=== PATIENT | female | born 1990 | race Hispanic/Latino ===

== ENCOUNTER 2019-02-19 17:36 | Emergency (ER) | payer OTHER ==
[2019-02-19] MEDS ORDERED: NA CHLORIDE 0.9% 1,000 ML ONE (17:59)
[2019-02-19 18:12] LABS: Absolute Monocytes 0.6 K/uL (0.1-1.3); Absolute Neutrophil 6.8 K/uL (1.8-8.0); Basophils % 0.4 % (0-1.3); Eosinophils % 1.6 % (0-4.4); Hematocrit 40.4 % (36.0-45.0); Lymphocytes % 21.2 % (15.3-44.8); MPV 10.3 fL (7.6-11.3); Monocytes % 6.1 % (3.3-12.3); RBC Red Blood Cell Count 4.74 M/uL (3.86-4.86)
[2019-02-19 18:31] LABS: BUN Blood Urea Nitrogen 11 mg/dL (7-18); Bicarbonate 29 mmol/L (21-32); Glucose Level 84 mg/dL (74-106); HCG, Quantitative 20 mIU/mL (1-3); Potassium 3.6 mmol/L (3.5-5.1); Sodium Level 141 mmol/L (136-145)
[2019-02-19 18:45] LABS: Urine Blood 2+ (NEG); Urine Glucose NEGATIVE (NEG); Urine Protein NEGATIVE (NEG); Urine Specific Gravity 1.015 (1.005-1.030)
--- NOTE | 2019-02-19 19:59 | EDPHYS ---
Physician Documentation [facility] Name: Arelis Mendoza Age: 28 yrs Sex: Female : 1990 Arrival Date: 02/19/2019 Time: 17:40 Bed 24 Private MD: ED Physician Manfred Lee HPI: 02/19 17:52 This 28 yrs old Female presents to ER via Ambulatory with complaints of olivia Vaginal Bleeding, 5 wks . 17:52 The patient presents with vaginal bleeding that is light. Onset: The symptoms/episode olivia began/occurred this morning, today. Modifying factors: The symptoms are alleviated by nothing, the symptoms are aggravated by nothing. Associated signs and symptoms: The patient has no apparent associated signs or symptoms. Severity of symptoms: At their worst the symptoms were mild, in the emergency department the symptoms are actually worse, mildly. The patient is sexually active. The patient has not experienced similar symptoms in the past. 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 - Social history:: Smoking status: Patient/guardian denies using tobacco. - Family history:: not pertinent. - Ebola Screening: : No symptoms or risks identified at this time. ROS: 17:52 Constitutional: Negative for fever, chills, and weight loss, Eyes: Negative for injury, olivia pain, redness, and discharge, ENT: Negative for injury, pain, and discharge, Neck: Negative for injury, pain, and swelling, Cardiovascular: Negative for chest pain, palpitations, and edema, Respiratory: Negative for shortness of breath, cough, wheezing, and pleuritic chest pain, Back: Negative for injury and pain, : Negative for injury, bleeding, discharge, and swelling, MS/Extremity: Negative for injury and deformity, Skin: Negative for injury, rash, and discoloration, Neuro: Negative for headache, weakness, numbness, tingling, and seizure, Psych: Negative for depression, anxiety, suicide ideation, homicidal ideation, and hallucinations, Allergy/Immunology: Negative for hives, rash, and allergies, Endocrine: Negative for neck swelling, polydipsia, polyuria, polyphagia, and marked weight changes, Hematologic/Lymphatic: Negative for swollen nodes, abnormal bleeding, and unusual bruising. 17:52 Abdomen/GI: 17:52 : Positive for vaginal bleeding. Exam: 17:52 Constitutional: This is a well developed, well nourished patient who is awake, alert, olivia and in no acute distress. Head/Face: Normocephalic, atraumatic. Eyes: Pupils equal round and reactive to light, extra-ocular motions intact. Lids and lashes normal. Conjunctiva and sclera are non-icteric and not injected. Cornea within normal limits. Periorbital areas with no swelling, redness, or edema. ENT: Nares patent. No nasal discharge, no septal abnormalities noted. Tympanic membranes are normal and external auditory canals are clear. Oropharynx with no redness, swelling, or masses, exudates, or evidence of obstruction, uvula midline. Mucous membranes moist. Neck: Trachea midline, no thyromegaly or masses palpated, and no cervical lymphadenopathy. Supple, full range of motion without nuchal rigidity, or vertebral point tenderness. No Meningismus. Chest/axilla: Normal chest wall appearance and motion. Nontender with no deformity. No lesions are appreciated. Cardiovascular: Regular rate and rhythm with a normal S1 and S2. No gallops, murmurs, or rubs. Normal PMI, no JVD. No pulse deficits. Respiratory: Lungs have equal breath sounds bilaterally, clear to auscultation and percussion. No rales, rhonchi or wheezes noted. No increased work of breathing, no retractions or nasal flaring. Abdomen/GI: Soft, non-tender, with normal bowel sounds. No distension or tympany. No guarding or rebound. No evidence of tenderness throughout. Back: No spinal tenderness. No costovertebral tenderness. Full range of motion. Skin: Warm, dry with normal turgor. Normal color with no rashes, no lesions, and no evidence of cellulitis. MS/ Extremity: Pulses equal, no cyanosis. Neurovascular intact. Full, normal range of motion. Neuro: Awake and alert, GCS 15, oriented to person, place, time, and situation. Cranial nerves II-XII grossly intact. Motor strength 5/5 in all extremities. Sensory grossly intact. Cerebellar exam normal. Normal gait. Psych: Awake, alert, with orientation to person, place and time. Behavior, mood, and affect are within normal limits. Vital Signs: 17:49 BP 133 / 95; Pulse 101; Resp 18; Temp 98; Pulse Ox 100% ; Weight 90.72 kg; Height 5 ft. sv 5 in. (165.10 cm); Pain 3/10; 19:30 BP 107 / 65; Pulse 93; Resp 16; Pulse Ox 100% on R/A; lp1 17:49 Body Mass Index 33.28 (90.72 kg, 165.10 cm) sv MDM: 17:45 Patient medically screened. [facility] 17:54 Data reviewed: vital signs, nurses notes, lab test result(s), radiologic studies, [facility] ultrasound. 19:57 Data interpreted: Pulse oximetry: on room air is 100 %. Interpretation: normal. pm1 Counseling: I had a detailed discussion with the patient and/or guardian regarding: the historical points, exam findings, and any diagnostic results supporting the discharge/admit diagnosis, lab results, the need for outpatient follow up, an OB/Gyne specialist, to return to the emergency department if symptoms worsen or persist or if there are any questions or concerns that arise at home. 02/19 17:46 Order name: Quantitative Hcg [facility] 02/19 17:46 Order name: Abo/rh Typing; Complete Time: 19:57 [facility] 02/19 17:46 Order name: Basic Metabolic Panel; Complete Time: 19:57 [facility] 02/19 17:46 Order name: CBC with Diff; Complete Time: 19:57 [facility] 02/19 17:47 Order name: HCG, Quantitative; Complete Time: 19:57 EDMS 02/19 18:09 Order name: Urine Dipstick--Ancillary (enter results); Complete Time: 19:57 bd 02/19 17:46 Order name: Urine Test (obtain specimen); Complete Time: 17:59 [facility] 02/19 17:46 Order name: IV Saline Lock; Complete Time: 17:59 [facility] 02/19 17:46 Order name: Labs collected and sent; Complete Time: 17:59 [facility] 02/19 17:46 Order name: NPO; Complete Time: 17:46 [facility] 02/19 18:09 Order name: Urine --Ancillary (enter results); Complete Time: 19:57 02/19 17:46 Order name: Urine Dipstick-Ancillary (obtain specimen); Complete Time: 18:00 [facility] Administered Medications: 17:55 Not Given (Duplicate Order): NS 0.9% 1000 ml IV at 1 bolus Per protocol; 1000 mL bolus [facility] 17:56 Drug: NS 0.9% 1000 ml Route: IV; Rate: 1 bolus; Site: left antecubital; 19:12 Follow up: IV Status: Completed infusion; IV Intake: 1000ml lp1 Disposition: 02/20 06:46 Co-signature as Attending Physician, Manfred Lee MD I agree with the assessment and [facility] plan of care. Disposition: 02/19/19 19:58 Discharged to Home. Impression: Threatened . - Condition is Stable. - Discharge Instructions: Dysmenorrhea, Miscarriage, Dysmenorrhea, [id number], Miscarriage, [id number], Pelvic Rest. - Prescriptions for Vitamin 27- 0.8 mg Oral Tablet - take 1 tablet by ORAL route once daily; 30 tablet. - Medication Reconciliation Form, Thank You Letter, Antibiotic Education, Prescription Opioid Use, Work release form form. - Follow up: Private Physician; When: 2 - 3 days; Reason: Recheck today's complaints, Continuance of care, Re-evaluation by your physician. - Problem is new. - Symptoms have improved. Signatures: Dispatcher [employer] EDAR Kim Owen, RN Manfred Lr MD MD cha Pena, Laura, RN RN lp1 Frankie Johnson RN RN hj Marinas, Patrick, AUTOMOBILE PARKER AUTOMOBILE PARKER pm1 Peterson Morgan RN RN mg2 Corrections: (The following items were deleted from the chart) 02/19 17:59 17:47 Transvaginal Ob+US.RAD.BRZ ordered. [facility] EDAR 20:20 19:58 02/19/2019 19:58 Discharged to Home. Impression: Threatened . Condition mg2 is Stable. Discharge Instructions: Dysmenorrhea, Miscarriage, Dysmenorrhea, [id number]-[id number], Miscarriage, [id number]. Prescriptions for Vitamin 27-0.8 mg Oral Tablet - take 1 tablet by ORAL route once daily; 30 tablet. and Forms are Medication Reconciliation Form, Thank You Letter, Antibiotic Education, Prescription Opioid Use. Follow up: Private Physician; When: 2 - 3 days; Reason: Recheck today's complaints, Continuance of care, Re-evaluation by your physician. Problem is new. Symptoms have improved. pm1
--- NOTE | 2019-02-19 19:59 | ER ---
Nurse's Notes [facility] Name: Arelis Mendoza Age: 28 yrs Sex: Female : 1990 Arrival Date: 02/19/2019 Time: 17:40 Bed 24 Private MD: Diagnosis: Threatened Presentation: 02/19 17:47 Presenting complaint: Patient states: abd cramping, dizziness, vaginal spotting started sv this morning around 0400 and bleeding has increased. Pt is 5 weeks . Transition of care: patient was not received from another setting of care. Onset of symptoms was February 19, 2019 at 04:00. Care prior to arrival: None. 17:47 Method Of Arrival: Ambulatory sv 17:47 Acuity: TONO 3 sv 20:00 Initial Sepsis Screen: Does the patient meet any 2 criteria? No. Patient's initial mg2 sepsis screen is negative. Does the patient have a suspected source of infection? No. Patient's initial sepsis screen is negative. 20:14 Risk Assessment: Do you want to hurt yourself or someone else? Patient reports no mg2 desire to harm self or others. 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 - Social history:: Smoking status: Patient/guardian denies using tobacco. - Family history:: not pertinent. - Ebola Screening: : No symptoms or risks identified at this time. Screenin:48 Abuse screen: Denies threats or abuse. Denies injuries from another. Nutritional lp1 screening: No deficits noted. Tuberculosis screening: No symptoms or risk factors identified. Fall Risk None identified. Assessment: 19:16 General: Appears in no apparent distress. Behavior is appropriate for age. lp1 19:20 Pain: Denies pain. Neuro: Level of Consciousness is awake, alert, obeys commands. lp1 Cardiovascular: Patient's skin is warm and dry. Respiratory: No deficits noted. GI: No deficits noted. : Reports vaginal bleeding that is bright red, since this morning. EENT: No deficits noted. Derm: Skin is pink, warm \T\ dry. Musculoskeletal: No deficits noted. 20:13 Reassessment: Patient and/or family updated on plan of care and expected duration. Pain mg2 level reassessed. Patient denies pain at this time. Vital Signs: 17:49 BP 133 / 95; Pulse 101; Resp 18; Temp 98; Pulse Ox 100% ; Weight 90.72 kg; Height 5 ft. sv 5 in. (165.10 cm); Pain 3/10; 19:30 BP 107 / 65; Pulse 93; Resp 16; Pulse Ox 100% on R/A; lp1 17:49 Body Mass Index 33.28 (90.72 kg, 165.10 cm) sv ED Course: 17:40 Patient arrived in ED. mr 17:42 Frankie Johnson, ANTONIO is Primary Nurse. hj 17:45 Manfred Lee MD is Attending Physician. olivia 17:48 Triage completed. sv 17:49 Arm band placed on. sv 17:55 Initial lab(s) drawn, by co, sent to lab. Inserted saline lock: 22 gauge in left tm3 antecubital area, using aseptic technique. 18:21 Tonio Wong NP is PHCP. pm1 19:48 Patient has correct armband on for positive identification. Pulse ox on. NIBP on. lp1 19:49 No provider procedures requiring assistance completed. lp1 20:13 IV discontinued, intact, bleeding controlled, No redness/swelling at site. Pressure mg2 dressing applied. Administered Medications: 17:55 Not Given (Duplicate Order): NS 0.9% 1000 ml IV at 1 bolus Per protocol; 1000 mL bolus olivia 17:56 Drug: NS 0.9% 1000 ml Route: IV; Rate: 1 bolus; Site: left antecubital; hj 19:12 Follow up: IV Status: Completed infusion; IV Intake: 1000ml lp1 Intake: 19:12 IV: 1000ml; Total: 1000ml. lp1 Outcome: 19:58 Discharge ordered by . pm1 20:14 Discharged to home ambulatory. mg2 20:14 Condition: good 20:14 Discharge instructions given to patient, Instructed on discharge instructions, follow up and referral plans. medication usage, Demonstrated understanding of instructions, follow-up care, medications, Prescriptions given X 1. 20:20 Patient left the ED. mg2 Signatures: Derrick Rodriguez tm3 BraydenKim RN RN sv Anderson, Corey, MD MD cha Rivera, Mary mr RyanKaity, ANTONIO RN lp1 Frankie Johnson RN RN Tonio Hennessy, EARNESTINE VP STRATEGIC PLANNING pm1 Peterson Morgan RN RN mg2 Corrections: (The following items were deleted from the chart) 19:47 19:16 General: Appears in no apparent distress. Behavior is appropriate for age, lp1 lp1
== END 2019-02-19 20:20 | disposition home or self-care (01) ==
LOC: ER 17:36
DX: O20.0 Threatened abortion (principal); Z3A.01 Less than 8 weeks gestation of pregnancy
CPT/HCPCS: 36415; 80048; 81003; 81025; 84702; 85025; 86900; 86901; 96360; 99284; J7030

== ENCOUNTER 2024-08-27 22:40 | Emergency (ER) | payer BC, OTHER ==
--- OUTSIDE RECORDS SUMMARY | 2024-08-27 22:44 | XMS REPORT | Continuity of Care Document ---
Author Name Unknown Address [address] [facility] [address] [place] [address] [facility] thconnect Address [address] 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 Role Phone Pcp, Patient Does Not Have A Primary Care Physic haresh ADEOLA RESTREPO Attending Clinician Unavailable ADEOLA RESTREPO Attending Clinician Unavailable Margarita Santiago MA Attending Clinician UnavailPrabhakar Kendrick MD Attending Clinician [phone] PRABHAKAR RAMIREZ Attending Clinician Unavailable Doctor Unassigned, [place] Attending Clinician U KARIS Narvaez Attending Clinician Unavailable Karis Anderson PA-C Attending Clinician [phone] Darcie Acosta MD Attending Clinician [phone] Adeola Restrepo MD Attending Clinician [phone] Ray Hughes MD Attending Clinician [phone] Lars Gillis MD Attending Clinician + 2, [facility] Attending Clinician Unavailable Ultrasound, Ang[facility] Attending Clinician UnavailEnedina Lopez MD Attending Clinician [phone] ENEDINA MORENO Attending Clinician Unavailable ENEDINA MORENO Attending Clinician Unavailable Howard Haddad MD Attending Clinician + HOWARD HADDAD Attending Clinician Unav Del Stevenson CRNA Attending Clinician [phone] Yelena Gustafson MD Attending Clinician [phone] Only, [facility] Test Attending Clinician Unavailable Harjit Lanier MD Attending Clinician [phone] HARJIT LANIER Attending Clinician Unavailabl e Ultrasound, [facility] Attending Clinician UnavailAlicia Flowers MD Attending Clinician + ALICIA MARIE Attending Clinician Lisa márquez Nurse, [facility] Attending Clinician Un available 1, [facility] Room Attending Clinician Unavailarben Young MD, [place] Renee Attending Clinician [phone] Mei Landeros Attending Clinician Unavailable ADEOLA RESTREPO Admitting Clinician Unavailable Adeola Restrepo MD Admitting Clinician [phone] PRABHAKAR RAMIREZ Admitting Clinician Unavailable Prabhakar Ramirez MD Admitting Clinician [phone] Mei Landeros Admitting Clinician Unavailable Payers Payer Name Policy Type Policy Number Effective Date Expirati on Date Source [facility] [id number] 2021 00:00:00 [facility] [id number] 2019 00:00:00 2021 00:00:00 [facility] [id number] 2021 00:00:00 Problems Condition Name Condition Details Condition Category Status Onset Date Resolution Date Last Treatment Date Treating Clinician Comments Source (spontaneo us vaginal delivery) (spontaneo us vaginal delivery) Disease Active 12-15 00:00: 00 General acute hospital Single live Single live Disease Active 12-15 00:00: 00 General acute hospital Preeclamps ia Preeclamps ia Disease Active 12-15 00:00: 00 General acute hospital Acute blood loss anemia Acute blood loss anemia Disease Active 12-15 00:00: 00 General acute hospital premature rupture of membranes (PPROM) delivered, current hospitaliz ation premature rupture of membranes (PPROM) delivered, current hospitaliz ation Disease Active 2-08 00:00: 00 General acute hospital Abnormal maternal glucose tolerance, antepartum Abnormal maternal glucose tolerance, antepartum Disease Active 1-05 00:00: 00 General acute hospital High risk , antepartum High risk , antepartum Disease Active 9 00:00: 00 General acute hospital History of severe pre-eclamp radu History of severe pre-eclamp radu Disease Active 9- 00:00: 00 General acute hospital Nausea and vomiting during prior to 22 weeks gestation Nausea and vomiting during prior to 22 weeks gestation Disease Active 07-14 00:00: 00 General acute hospital Encounter for screening for maternal depression Encounter for screening for maternal depression Disease Active 1-11 00:00: 00 General acute hospital 34 weeks gestation of 34 weeks gestation of Disease Active 2020-11 1-15 00:00: 00 General acute hospital Papanicola ou smear of cervix with atypical squamous cells cannot exclude high grade squamous intraepith elial lesion (ASC-H) Papanicola ou smear of cervix with atypical squamous cells cannot exclude high grade squamous intraepith elial lesion (ASC-H) Disease Active 6-10 00:00: 00 General acute hospital Morbid obesity with body mass index of 40.0-49.9 Morbid obesity with body mass index of 40.0-49.9 Disease Active 7-10 00:00: 00 General acute hospital Allergies, Adverse Reactions, Alerts Allergy Name Allergy Type Status Severity Reaction(s) Onset Date Inactive Date Treating Clinician Comments Source No Known Allergie s DA Active U 1-17 00:00: 00 [facility] NO KNOWN ALLERGIE S Drug Class Active General acute hospital Social History Social Habit Start Date Stop Date Quantity Comments Source ASSERTION 2022-05-01 00:00:00 [facility] History SDOH Alcohol Frequency [facility] History SDOH Alcohol Std Drinks [facility] Alcohol Binge [facility] Exposure to SARS-CoV-2 (event) 2023-01-20 00:00:00 2023-01-30 08:05:00 Not sure [facility] History of Social function 2023-01-30 00:00:00 2023-01-30 00:00:00 [facility] Alcohol intake 2023-01-30 00:00:00 2023-01-30 00:00:00 Ex-drinker (finding) [facility] Tobacco use and exposure 2022-07-14 00:00:00 2022-07-14 00:00:00 Smokeless tobacco non-user [facility] Alcohol Comment 2020-05-15 00:00:00 2020-05-15 00:00:00 ocassionally [facility] Sex Assigned At 1990 00:00:00 1990 00:00:00 [facility] Smoking Status Start Date Stop Date Source Never smoked tobacco General acute hospital Medications Ordered Medication Name Filled Medication Name Start Date Stop Date Current Medication? Ordering Clinician Indication Dosage Frequency Signature (SIG) Comments Components Source miSOPROStoL 200 mcg tablet 5- 00:00: 00 Yes Take 1 tablet by mouth the evening before your IUD insertion, and 1 tablet by mouth the morning of your IUD insertion. General acute hospital medroxyPROG ESTERone (DEPO-PROVE RA) syringe 150 mg 01-30 15:00: 00 01-30 14:25 :00 No [id number] 150mg [facility] svi094-avql fum-folic () 27 mg iron- 1 mg folic tablet 2- 00:00: 00 Yes [id number] 1{tbl} Take 1 tablet by mouth in the morning. General acute hospital ferrous sulfate 325 mg (65 mg iron) tablet - 00:00: 00 Yes [id number] 325mg Take 1 tablet by mouth in the morning and 1 tablet in the evening. [facility] acute hospital squ025-uchv fum-folic () 27 mg iron- 1 mg folic tablet 2- 00:00: 00 Yes [id number] 1{tbl} Take 1 tablet by mouth in the morning. [facility] acute hospital docusate 100 mg capsule 12-16 00:00: 00 01-30 00:00 :00 No [id number] 200mg Take 2 capsules by mouth once daily as needed for Constipati on. General acute hospital ibuprofen 600 mg tablet 12-16 00:00: 00 01-30 00:00 :00 No [id number] 600mg Take 1 tablet by mouth every 6 (six) hours as needed (Pain). Take with food or milk. [facility] acute hospital ascorbic acid (vitamin C) (VITAMIN C) tablet 500 mg 12-15 16:30: 00 Yes 500mg 500 mg, Oral, BID, First dose on Andressa 12/15/22 at 1030, Until Discontinu ed, Routine [facility] acute hospital ferrous sulfate tablet 325 mg 12-15 16:30: 00 Yes 325mg 325 mg, Oral, BID, First dose on Andressa 12/15/22 at 1030, Until Discontinu ed, Routine [facility] acute hospital ondansetron (ZOFRAN (PF)) injection 4 mg 12-15 09:30: 00 12-15 08:50 :00 No 4mg 4 mg, Slow IV Push, ONCE, On Andressa 12/15/22 at 0330, For 1 dose
Do ses of ondansetro n 16 mg and above need to be administer ed via IV piggyback. For Dose >=24mg ECG monitoring is advisable.
General acute hospital rho(D) immune globulin (RHOGAM) syringe 300 mcg 12-15 09:19: 59 Yes 300ug 300 mcg, Intramuscu lar, ONCE, For 1 dose, Conditiona l, Routine [facility] acute hospital human papillomav vac,9-monica(P F) (GARDASIL-9 ) syringe 0.5 mL 12-15 09:19: 55 Yes .5mL 0.5 mL, Intramuscu lar, ONCE-PRIOR TO DISCHARGE, 1 dose, Starting on Andressa 12/15/22 at 318, Until Discontinu ed, Routine, Give vaccine prior to discharge [facility] acute hospital ibuprofen (IBU) tablet 600 mg 12-15 09:19: 55 Yes 600mg 600 mg, Oral, Q6HPRN, Starting on Mon12/15/22 at 318, Until Discontinu ed, Routine, Pain (scale 4-6) [facility] acute hospital acetaminoph en (TYLENOL) tablet 650 mg 12-15 09:19: 55 Yes 650mg 650 mg, Oral, Q6HPRN, Starting on Mon12/15/22 at 318, Until Discontinu ed, Routine, Pain (scale 1-3) [facility] acute hospital diphenhydrA MINE (BENADRYL) tablet 25 mg 12-15 09:19: 55 Yes 25mg 25 mg, Oral, Q6HPRN, Starting on Mon12/15/22 at 318, Until Discontinu ed, Routine, Sleep, Itching General acute hospital ondansetron (ZOFRAN (PF)) injection 4 mg 12-15 09:19: 55 Yes 4mg 4 mg, Slow IV Push, Q8HPRN, Starting on Mon12/15/22 at 318, Until Discontinu ed, Routine, Nausea and Vomiting (N/V) General acute hospital simethicone (GAS RELIEF (SIMETHICON E)) chewable tablet 160 mg 12-15 09:19: 55 Yes 160mg 160 mg, Oral, PC+HSPRN, Starting on Mon12/15/22 at 318, Until Discontinu ed, Routine, Gas [facility] docusate (COLACE) capsule 200 mg 12-15 09:19: 55 Yes 200mg 200 mg, Oral, QDAILYPRN, Starting on Mon12/15/22 at 318, Until Discontinu ed, Routine, Constipati on General acute hospital magnesium hydroxide (MILK OF MAGNESIA) 400 mg/5 mL suspension 30 mL 12-15 09:19: 55 Yes 30mL 30 mL, Oral, QDAILYPRN, Starting on Mon12/15/22 at 0319, Until Discontinu ed, Routine, Constipati on General acute hospital benzocaine- menthol (DERMOPLAST ) 20-0.5 % topical spray 12-15 09:19: 55 Yes Topical, PRN, Starting on Mon12/15/22 at 0319, Until Discontinu ed, Routine, Perineum discomfort General acute hospital acetaminoph en (TYLENOL) tablet 1,000 mg 12-15 01:45: 00 12-15 01:01 :00 No 1000mg 1,000 mg, Oral, ONCE, 1 dose, On Mon12/14/22 at 1945, Routine General acute hospital ropivacaine 0.2 % (NAROPIN (PF)) epidural infusion 12-15 00:06: 00 12-15 06:42 :26 No Epidural, CONTINUOUS PRN, Starting on Mon12/14/22 at 1806, Until Mon12/15/22 at 0042, Routine, Intra-op General acute hospital lidocaine-e pinephrine (XYLOCAINE W/EPINEPHRI NE) 1.5 %-1:200,000 injection 12-15 00:06: 00 12-15 06:42 :26 No Intraderma l, ONCE INTRA PROCEDURE, Starting on Mon12/14/22 at 1806, Until Andressa 12/15/22 at 0042, Routine, Intra-op General acute hospital lactated ringers IV infusion 500 mL 12-15 00:00: 00 12-15 01:17 :00 No 500mL at 999 mL/hr, 500 mL, IV Infusion, ONCE, 1 dose, On Mon12/14/22 at 1800, Routine General acute hospital oxytocin (PITOCIN) 30 units in NS 500 mL IV infusion 12-14 23:32: 02 12-15 09:19 :57 No 2mU/min at 2-40 mL/hr, IV Infusion, TITRATE, Starting on Mon12/14/22 at 1732, Until Mon12/15/22 at 0319, LESLI General acute hospital sodium citrate-cit shavonne acid (BICITRA) 500-334 mg/5 mL solution 30 mL 12-14 23:07: 28 12-14 23:50 :00 No 30mL 30 mL, Oral, PRE-PROCED URE ONCE, 1 dose, Starting on Mon12/14/22 at 1707, Until Mon12/14/22 at 1750, Routine, Surgery/Pr ocedure General acute hospital betamethaso ne acet,sod phos (CELESTONE SOLUSPAN) 6 mg/mL injection 12 mg 12-14 17:45: 00 12-15 09:19 :57 No 12mg 12 mg, Intramuscu lar, Q24H, 2 doses, First dose on Mon12/14/22 at 1145, Last dose on Mon12/15/22 at 1145, Routine General acute hospital D5W-LR IV infusion 1,000 mL 12-14 17:36: 01 12-15 09:19 :57 No 1000mL at 1-125 mL/hr, IV Infusion, TITRATE, Starting on Mon12/14/22 at 1136, Until Mon12/15/22 at 0319, Routine General acute hospital ferrous sulfate (IRON, FERROUS SULFATE,) 325 mg (65 mg iron) tablet 11-10 00:00: 00 12-16 00:00 :00 No [id number] 325mg Take 1 tablet by mouth in the morning and 1 tablet in the evening. General acute hospital pyridoxine, VITAMIN B-6, (VITAMIN B-6) 25 mg tablet 07-14 00:00: 00 12-16 00:00 :00 No [id number] 25mg Take 1 tablet by mouth every 6 (six) hours as needed for Pain (scale 1-3) or Pain (scale 4-6). General acute hospital doxylamine (UNISOM, DOXYLAMINE, ) 25 mg tablet 07-14 00:00: 00 12-16 00:00 :00 No [id number] 25mg Take 1 tablet by mouth at bedtime as needed for Nausea and Vomiting (N/V). [facility] acute hospital aspirin 81 mg EC tablet 9-08 00:00: 00 12-16 00:00 :00 No [id number] 81mg Take 1 tablet by mouth in the morning. General acute hospital vitamin w/FA tablet 2020-11 1-17 00:00: 00 12-16 00:00 :00 No [id number] 1{tbl} Take 1 tablet by mouth daily. [facility] acute hospital Immunizations Ordered Immunization Name Filled Immunization Name Date Status Comments Source TDAP 2022-11-10 00:00:00 Completed [facility] TDAP 2022-11-10 00:00:00 Completed [facility] TDAP 2022-11-10 00:00:00 Completed [facility] TDAP 2022-11-10 00:00:00 Completed [facility] TDAP 2022-11-10 00:00:00 Completed [facility] TDAP 2022-11-10 00:00:00 Completed [facility] TDAP 2022-11-10 00:00:00 Completed [facility] TDAP 2022-11-10 00:00:00 Completed [facility] TDAP 2022-11-10 00:00:00 Completed [facility] TDAP 2022-11-10 00:00:00 Completed [facility] TDAP 2022-11-10 00:00:00 Completed [facility] TDAP 2022-11-10 00:00:00 Completed [facility] TDAP 2022-11-10 00:00:00 Completed [facility] TDAP 2022-11-10 00:00:00 Completed [facility] TDAP 2022-11-10 00:00:00 Completed [facility] TDAP 2022-11-10 00:00:00 Completed [facility] TDAP 2022-11-10 00:00:00 Completed [facility] TDAP 2021-07-29 00:00:00 Completed [facility] TDAP 2021-07-29 00:00:00 Completed [facility] TDAP 2021-07-29 00:00:00 Completed [facility] TDAP 2021-07-29 00:00:00 Completed [facility] TDAP 2021-07-29 00:00:00 Completed [facility] TDAP 2021-07-29 00:00:00 Completed [facility] TDAP 2021-07-29 00:00:00 Completed [facility] TDAP 2021-07-29 00:00:00 Completed [facility] TDAP 2021-07-29 00:00:00 Completed [facility] TDAP 2021-07-29 00:00:00 Completed [facility] TDAP 2021-07-29 00:00:00 Completed [facility] TDAP 2021-07-29 00:00:00 Completed [facility] TDAP 2021-07-29 00:00:00 Completed [facility] TDAP 2021-07-29 00:00:00 Completed [facility] TDAP 2021-07-29 00:00:00 Completed [facility] TDAP 2021-07-29 00:00:00 Completed [facility] TDAP 2021-07-29 00:00:00 Completed [facility] TDAP 2021-07-29 00:00:00 Completed [facility] TDAP 2021-07-29 00:00:00 Completed [facility] TDAP 2021-07-29 00:00:00 Completed [facility] TDAP 2021-07-29 00:00:00 Completed [facility] TDAP 2021-07-29 00:00:00 Completed [facility] TDAP 2021-07-29 00:00:00 Completed [facility] TDAP 2021-07-29 00:00:00 Completed [facility] TDAP 2021-07-29 00:00:00 Completed [facility] TDAP 2021-07-29 00:00:00 Completed [facility] TDAP 2021-07-29 00:00:00 Completed [facility] TDAP 2021-07-29 00:00:00 Completed [facility] TDAP Unknown Completed [facility] Vital Signs Vital Name Observation Time Observation Value Comments S ource Systolic blood pressure 2023-01-30 13:42:00 127 mm[Hg] [facility] Diastolic blood pressure 2023-01-30 13:42:00 87 mm[Hg] [facility] Heart rate 2023-01-30 13:42:00 77 /min Unive [facility] Body temperature 2023-01-30 13:42:00 36.61 Danica [facility] Body height 2023-01-30 13:42:00 165.1 cm [facility] Body weight 2023-01-30 13:42:00 111.676 kg [facility] BMI 2023-01-30 13:42:00 40.97 kg/m2 [facility] Systolic blood pressure 2022-12-20 15:48:00 114 mm[Hg] [facility] Diastolic blood pressure 2022-12-20 15:48:00 77 mm[Hg] [facility] Heart rate 2022-12-20 15:48:00 96 /min Unive [facility] Body temperature 2022-12-20 15:48:00 37.11 Danica [facility] Respiratory rate 2022-12-20 15:48:00 18 /min [facility] Body height 2022-12-20 15:48:00 165.1 cm [facility] Body weight 2022-12-20 15:48:00 112.492 kg [facility] BMI 2022-12-20 15:48:00 41.27 kg/m2 [facility] Systolic blood pressure 2022-12-16 14:30:00 117 mm[Hg] [facility] Diastolic blood pressure 2022-12-16 14:30:00 70 mm[Hg] [facility] Heart rate 2022-12-16 14:30:00 82 /min [facility] Body temperature 2022-12-16 14:30:00 36.89 Danica [facility] Respiratory rate 2022-12-16 14:30:00 18 /min [facility] Oxygen saturation in Arterial blood by Pulse oximetry 2022-12-16 06:15:00 97 /min [facility] Body height 2022-12-14 21:30:00 162.6 cm Univ [facility] Body weight 2022-12-14 21:30:00 115.667 kg [facility] BMI 2022-12-14 21:30:00 43.77 kg/m2 [facility] Systolic blood pressure 2022-12-08 17:23:00 138 mm[Hg] [facility] Diastolic blood pressure 2022-12-08 17:23:00 85 mm[Hg] [facility] Heart rate 2022-12-08 17:23:00 87 /min Un[facility] Body temperature 2022-12-08 17:23:00 36.94 Danica [facility] Respiratory rate 2022-12-08 17:23:00 18 /min [facility] Body height 2022-12-08 17:23:00 162.6 cm Univ [facility] Body weight 2022-12-08 17:23:00 116.121 kg [facility] BMI 2022-12-08 17:23:00 43.94 kg/m2 [facility] Systolic blood pressure 2022-11-24 16:48:00 124 mm[Hg] [facility] Diastolic blood pressure 2022-11-24 16:48:00 78 mm[Hg] [facility] Heart rate 2022-11-24 16:48:00 91 /min Un[facility] Body temperature 2022-11-24 16:48:00 36.89 Danica [facility] Body height 2022-11-24 16:48:00 165.1 cm Univ [facility] Body weight 2022-11-24 16:48:00 115.849 kg [facility] BMI 2022-11-24 16:48:00 42.50 kg/m2 [facility] Systolic blood pressure 2022-11-10 15:40:00 137 mm[Hg] [facility] Diastolic blood pressure 2022-11-10 15:40:00 85 mm[Hg] [facility] Heart rate 2022-11-10 15:40:00 99 /min [facility] Body temperature 2022-11-10 15:40:00 36.83 Danica [facility] Body height 2022-11-10 15:40:00 165.1 cm Univ [facility] Body weight 2022-11-10 15:40:00 115.123 kg Univ [facility] BMI 2022-11-10 15:40:00 42.23 kg/m2 Univ [facility] Systolic blood pressure 2022-10-20 16:55:00 129 mm[Hg] [facility] Diastolic blood pressure 2022-10-20 16:55:00 84 mm[Hg] [facility] Heart rate 2022-10-20 16:55:00 97 /min Un[facility] Body temperature 2022-10-20 16:55:00 37.17 Danica [facility] Respiratory rate 2022-10-20 16:55:00 18 /min [facility] Body height 2022-10-20 16:55:00 165.1 cm Univ [facility] Body weight 2022-10-20 16:55:00 115.214 kg Univ [facility] BMI 2022-10-20 16:55:00 42.27 kg/m2 Univ [facility] Systolic blood pressure 2022-09-12 20:12:00 128 mm[Hg] [place] [facility] Diastolic blood pressure 2022-09-12 20:12:00 81 mm[Hg] [facility] Heart rate 2022-09-12 19:13:00 95 /min [facility] Body temperature 2022-09-12 19:13:00 36.83 Danica [facility] Respiratory rate 2022-09-12 19:13:00 18 /min [facility] Body height 2022-09-12 19:13:00 165.1 cm Univ [facility] Body weight 2022-09-12 19:13:00 116.121 kg Univ [facility] BMI 2022-09-12 19:13:00 42.60 kg/m2 Univ [facility] Systolic blood pressure 2022-08-15 19:47:00 135 mm[Hg] [place] [facility] Diastolic blood pressure 2022-08-15 19:47:00 84 mm[Hg] [place] [facility] Heart rate 2022-08-15 19:47:00 79 /min [facility] Body temperature 2022-08-15 19:47:00 36.94 Danica [facility] Respiratory rate 2022-08-15 19:47:00 18 /min [facility] Body height 2022-08-15 19:47:00 165.1 cm [facility] Body weight 2022-08-15 19:47:00 116.121 kg [facility] BMI 2022-08-15 19:47:00 42.60 kg/m2 [facility] Procedures Procedure Date / Time Performed Performing Clinician Source [facility] PATIENT FINANCIAL POLICY 2023-01-30 13:07:28 Doctor Unassigned, [place] [facility] POCT TEST 2023-01-30 00:00:00 Prabhakar Ramirez [facility] POCT URINALYSIS W/O SPECIFIC GRAVITY 2022-12-20 00:00:00 Karis Anderson [facility] CBC WITH DIFF 2022-12-15 13:43:00 Carlos Limon [facility] VENOUS CORD GAS 2022-12-15 05:39:00 Chuyita Gar [facility] CENTRAL NEURAXIAL BLOCK 2022-12-15 00:14:00 Artemio Hughes [facility] SGOT (ASPARTATE AMINO TRANSFER) 2022-12-14 21:41:00 Jenusaitis [facility] CREATININE 2022-12-14 21:41:00 Jenusamarlo [facility] ALANINE AMINO TRANSFERASE(SGPT 2022-12-14 21:41:00 Vipin [facility] LACTATE DEHYDROGENASE 2022-12-14 21:41:00 Jensusie [facility] URIC ACID 2022-12-14 21:41:00 Jensusie [facility] CBC WITH DIFF 2022-12-14 21:41:00 JenMisbah richards [facility] URINALYSIS 2022-12-14 21:41:00 Jenusaitis, [facility] PROTEIN CREAT RATIO URINE RANDOM 2022-12-14 21:41:00 JenusaitisMisbah [facility] HB ABO GROUPING 2022-12-14 21:40:00 JenusaitisMisbah U [facility] RHO (D) IMMUNE GLOBULIN 2022-12-14 21:40:00 Rigo Limon [facility] CBC WITH DIFF 2022-12-14 18:19:00 Ashley [facility] HEPATITIS B SURFACE ANTIGEN 2022-12-14 18:19:00 Ashley [facility] ADC OR GABE ONLY - RPR 2022-12-14 18:19:00 Ashley [facility] HIV 1/2 AG-AB WITH REFLEX 2022-12-14 18:19:00 [facility] 2022-12-14 18:10[facility] - [facility] 2022-12-14 17:27:00 Ashley [facility] ASSIGNMENT OF BENEFITS 2022-12-14 16:15:58 Docto r Unassigned, [place] [facility] POCT URINALYSIS W/O SPECIFIC GRAVITY 2022-12-08 00:00:00 Karis Anderson [facility] POCT URINALYSIS W/O SPECIFIC GRAVITY 2022-11-24 00:00:00 Prabhakar Ramirez [facility] 1 HR GLUCOSE TOLERANCE TEST 2022-11-23 15:53:00 Karis Anderson [facility] GLUCOSE FASTING 2022-11-23 14:58:00 Karis Anderson [facility] TDAP VACCINE, >11 YRS, IM 2022-11-10 15:41:56 Prabhakar Ramirez [facility] POCT URINALYSIS W/O SPECIFIC GRAVITY 2022-11-10 00:00:00 [facility]INALYSIS W/O SPECIFIC GRAVITY 2022-10-20 00:00:00 Karis Anderson [facility] POCT URINALYSIS W/O SPECIFIC GRAVITY 2022-09-12 00:00:00 Ashley Prabhakar Garcia [facility] POCT URINALYSIS W/O SPECIFIC GRAVITY 2022-08-15 00:00:00 Karis Anderson [facility] [id number] 2019-11-22 00:00:00 [facility] [id number] 2019-11-22 00:00:00 [facility] [facility] [id number] 2019-11-22 00:00:00 [facility] Encounters Start Date/Time End Date/Time Encounter Type Admission Type Attending [facility] Care Department Encounter ID Source 2022-12-14 13:05:51 Outpatient ADEOLA LAST SHANNON [facility] [id number] General acute hospital 2023-09-01 00:00:00 2023-09-01 00:00:00 Case Management Margarita Santiago [place] 1.2.840.114 350.1.13.10 4.2.7.2.686 [id number] [id number] General acute hospital 2023-03-16 00:00:00 2023-03-16 00:00:00 Telephone AshleyPrabhakar Jose [facility] 1.2.840.114 350.1.13.10 4.2.7.2.686 [id number] 134 [id number] General acute hospital 2023-03-16 00:00:00 2023-03-16 00:00:00 Telephone Prabhakar Ramirez Jose [facility] 1.2.840.114 350.1.13.10 4.2.7.2.686 [id number] 134 [id number] General acute hospital 2023-03-16 00:00:00 2023-03-16 00:00:00 Refill Prabhakar Ramirez Jose [facility] 1.2.840.114 350.1.13.10 4.2.7.2.686 [id number] 134 [id number] General acute hospital 2023-01-30 08:15:00 2023-01-30 09:25:43 Outpatient R RAMIREZ PRABHAKAR [facility] [id number] General acute hospital 2023-01-30 08:15:00 2023-01-30 09:25:43 Office Visit [facility]akar Ramirez [facility] 1..840.114 350.1.13.10 4.2.7.2.686 [id number] 134 [id number] General acute hospital 2023-01-30 00:00:00 2023-01-30 00:00:00 Orders Only Doctor Unassigned, [place] [facility] 1..840.114 350.1.13.10 4.2.7.2.686 [id number] General acute hospital 2023-01-05 08:00:00 2023-01-05 08:00:00 Outpatient R RAMIREZ PRABHAKAR [facility] [id number] General acute hospital 2022-12-21 09:30:00 2022-12-21 09:30:00 Outpatient R PRABHAKAR RAMIREZ [facility] [id number] General acute hospital 2022-12-20 09:45:00 2022-12-20 10:21:53 Outpatient R KARIS ANDERSON [facility] [id number] General acute hospital 2022-12-20 09:45:00 2022-12-20 10:21:53 [facility] 1..840.114 350.1.13.10 4.2.7.2.686 [id number] 134 [id number] General acute hospital 2022-12-14 10:30:00 2022-12-16 13:00:00 Inpatient P [facility] [id number] General acute hospital 2022-12-14 10:30:00 2022-12-16 13:00:00 Hospital Encounter Addavid, Darcie Ramirez, Prabhakar Restrepo, Adeola Hoff [facility] 1.2.840.114 350.1.13.10 4.2.7.2.686 [id number] 134 [id number] General acute hospital 2022-12-14 17:53:00 2022-12-15 00:42:00 Anesthesia Event Saul RayLars Gallagher [facility] 1.2.840.114 350.1.13.10 4.2.7.2.686 [id number] 132 [id number] General acute hospital 2022-12-14 17:52:11 2022-12-14 17:52:11 Anesthesia Event Ray Hughes [facility] 1.2.840.114 350.1.13.10 4.2.7.2.686 [id number] 132 [id number] General acute hospital 2022-12-14 00:00:00 2022-12-14 00:00:00 Orders Only Doctor Unassigned, [place] [facility] 1.2840.114 350.1.13.10 4.2.7.2.686 [id number] General acute hospital 2022-12-14 00:00:00 2022-12-14 00:00:00 Telephone Prabhakar Ramirez [facility] 1.2840.114 350.1.13.10 4.2.7.2.686 [id number] 134 [id number] General acute hospital 2022-12-08 11:15:00 2022-12-08 11:39:58 Outpatient R KARIS ANDERSON [facility] [id number] General acute hospital 2022-12-08 11:15:00 2022-12-08 11:39:58 Routine Visit Karis Anderson [facility] 1.284.114 350.1.13.10 4.2.7.2.686 [id number] 134 [id number] General acute hospital 2022-11-24 10:45:00 2022-11-24 10:57:16 Outpatient R PRABHAKAR RAMIREZ [facility] [id number] General acute hospital 2022-11-24 10:45:00 2022-11-24 10:57:16 Routine Visit Prabhakar Ramirez [facility] 1.2840.114 350.1.13.10 4.2.7.2.686 [id number] 134 [id number] General acute hospital 2022-11-23 09:30:00 2022-11-23 09:45:00 Shoemaker Custom Visit 2, [facility] 1.2840.114 350.1.13.10 4.2.7.2.686 [id number] 353 [id number] General acute hospital 2022-11-23 09:30:00 2022-11-23 09:30:00 Outpatient R ASHLEY [facility] [id number] General acute hospital 2022-11-10 10:45:00 2022-11-10 11:15:00 Shoemaker Custom Visit Ultrasound, [facility] Prabhakar Ramirez Enedina Moreno [facility] ENVIRONMENTAL DESIGNER [facility] 1.2840.114 350.1.13.10 4.2.7.2.686 [id number] General acute hospital 2022-11-10 10:45:00 2022-11-10 10:59:59 Outpatient P ENEDINA MORENO SANGEETA [facility] [id number] General acute hospital 2022-11-10 09:45:00 2022-11-10 10:05:40 Routine Visit Prabhakar Ramirez [facility] 1.2840.114 350.1.13.10 4.2.7.2.686 [id number] 134 [id number] General acute hospital 2022-11-10 08:30:00 2022-11-10 08:45:00 Shoemaker Custom Visit 2, Adc Lab Prabhakar Ramirez [facility] 1.2.840.114 350.1.13.10 4.2.7.2.686 [id number] General acute hospital 2022-11-10 00:00:00 2022-11-10 00:00:00 Case Management [facility] 1.2.840.114 350.1.13.10 4.2.7.2.686 [id number] 134 [id number] General acute hospital 2022-10-20 10:45:00 2022-10-20 11:16:22 Outpatient R MONICA KARIS [facility] [id number] General acute hospital 2022-10-20 10:45:00 2022-10-20 11:16:22 Routine Visit Karis Anderson [facility] 1.2.840.114 350.1.13.10 4.2.7.2.686 [id number] 134 [id number] General acute hospital 2022-10-10 10:30:00 2022-10-10 10:45:00 Routine Visit Karis Anderson [facility] 1.2.840.114 350.1.13.10 4.2.7.2.686 [id number] 134 [id number] General acute hospital 2022-10-10 10:30:00 2022-10-10 10:30:00 Outpatient [facility] [id number] General acute hospital 2022-09-27 13:00:00 2022-09-27 13:00:00 Outpatient R PRABHAKAR RAMIREZ [facility] [id number] General acute hospital 2022-09-20 14:30:00 2022-09-20 14:30:00 Outpatient R PRABHAKAR RAMIREZ [facility] [id number] General acute hospital 2022-09-16 08:00:00 2022-09-16 09:00:00 Shoemaker Custom Visit Ultrasound, Jamaal-Edgar Howard Haddad Mami [facility] ENVIRONMENTAL DESIGNER [facility] MATERNAL & CHILD HEALTH [facility] 1.2840.114 350.1.13.10 4.2.7.2.686 [id number] General acute hospital 2022-09-16 08:00:00 2022-09-16 08:00:00 Outpatient P HOWARD HADDAD [facility] [id number] General acute hospital 2022-09-12 13:15:00 2022-09-12 13:42:24 Outpatient R PRABHAKAR RAMIREZ [facility] [id number] General acute hospital 2022-09-12 13:15:00 2022-09-12 13:42:24 Routine Visit Prabhakar Ramirez [facility] 1.2.840.114 350.1.13.10 4.2.7.2.686 [id number] 134 [id number] General acute hospital 2022-08-15 16:00:00 2022-08-15 16:15:00 Shoemaker Custom Visit 2, Adc Lab Monica [facility] 1.2.840.114 350.1.13.10 4.2.7.2.686 [id number] 353 [id number] General acute hospital 2022-08-15 14:45:00 2022-08-15 15:33:08 Outpatient R MONICA [facility] [id number] General acute hospital 2022-08-15 14:45:00 2022-08-15 15:33:08 Routine Visit Monica [facility] 1.2.840.114 350.1.13.10 4.2.7.2.686 [id number] 134 [id number] General acute hospital 2022-08-11 00:00:00 2022-08-11 00:00:00 Telephone Prabhakar Ramirez [facility] 1.2.840.114 350.1.13.10 4.2.7.2.686 [id number] 134 [id number] General acute hospital 2022-07-26 00:00:00 2022-07-26 00:00:00 Telephone Prabhakar Ramirez [facility] 1.2.840.114 350.1.13.10 4.2.7.2.686 [id number] 134 [id number] General acute hospital 2022-07-26 00:00:00 2022-07-26 00:00:00 Telephone Prabhakra Ramirez [facility] 1.2.840.114 350.1.13.10 4.2.7.2.686 [id number] 134 [id number] General acute hospital 2022-07-18 09:15:00 2022-07-18 10:11:50 Shoemaker Custom Visit 2, Adc Lab Prabhakar Ramirez [facility] 1.2.840.114 350.1.13.10 4.2.7.2.686 [id number] 353 [id number] General acute hospital 2022-07-18 09:15:00 2022-07-18 09:15:00 Outpatient R PRABHAKAR RAMIREZ [facility] [id number] General acute hospital 2022-07-14 10:00:00 2022-07-14 11:04:01 Outpatient R PRABHAKAR RAMIREZ [facility] [id number] General acute hospital 2022-07-14 10:00:00 2022-07-14 11:04:01 Initial Visit Prabhakar Ramirez [facility]ILD[facility] 1.2.840.114 350.1.13.10 4.2.7.2.686 [id number] 134 [id number] General acute hospital 2022-07-14 00:00:00 2022-07-14 00:00:00 Orders Only Doctor Unassigned, [place] [facility] 1.20.114 350.1.13.10 4.2.7.2.686 [id number] [id number] General acute hospital 2022 00:00:00 2022 00:00:00 Telephone Prabhakar Ramirez [facility] 1.84.114 350.1.13.10 4.2.7.2.686 [id number] 134 [id number] General acute hospital 2021-12-22 10:30:00 2021-12-22 10:30:00 [id number] acute [facility] 2021-12-21 13:30:00 2021-12-21 13:30:00 [facility] [id number] [facility] acute hospital 2021-11-25 08:15:00 2021-11-25 08:15:00 [facility] [id number] General acute hospital 2021-11-16 14:15:00 2021-11-16 15:10:50 [facility] [id number] General acute hospital 2021-11-16 14:15:00 2021-11-16 15:10:50 Routine Visit Prabhakar Ramirez [facility] 1.840.114 350.1.13.10 4.2.7.2.686 [id number] 134 [id number] General acute hospital 2021-11-16 00:00:00 2021-11-16 00:00:00 Orders Only Doctor Unassigned, [place] [facility] 1.20.114 350.1.13.10 4.2.7.2.686 [id number] [id number] General acute hospital 2021-10-25 11:00:00 2021-10-25 11:00:00 Outpatient R PRABHAKAR RAMIREZ [facility] [id number] General acute hospital 2021-09-20 04:17:00 2021-09-22 15:45:00 Inpatient P PRABHAKAR RAMIREZ [facility] [id number] General acute hospital 2021-09-20 04:17:00 2021-09-22 15:45:00 Hospital Encounter Prabhakar Ramirez [facility] 1.2.840.114 350.1.13.10 4.2.7.2.686 [id number] General acute hospital 2021-09-21 20:04:15 2021-09-21 20:04:15 Anesthesia Event Del Cornell [facility] 1.2.840.114 350.1.13.10 4.2.7.2.686 [id number] General acute hospital 2021-09-20 10:35:00 2021-09-20 15:59:00 Anesthesia Event Del Cornell Yelena Gustafson [facility] 1.2.114 350.1.13.10 4.2.7.2.686 [id number] General acute hospital 2021-09-20 10:30:00 2021-09-20 10:30:00 Outpatient R PRABHAKAR RAMIREZ [facility] [id number] General acute hospital 2021-09-20 00:00:00 2021-09-20 00:00:00 Orders Only Doctor Unassigned, [place] [facility] 1.20.114 350.1.13.10 4.2.7.2.686 [id number] General acute hospital 2021-09-17 09:03:35 2021-09-17 09:18:35 Laboratory Only Only, Adc Test Harjit Lanier [facility] 1.2840.114 350.1.13.10 4.2.7.2.686 [id number] 353 [id number] General acute hospital 2021-09-17 08:15:00 2021-09-17 08:15:00 Outpatient HARJIT SOL [facility] [id number] General acute hospital 2021-09-17 00:00:00 2021-09-17 00:00:00 Orders Only Doctor Unassigned, [place] [facility] 1.2840.114 350.1.13.10 4.2.7.2.686 [id number] [id number] General acute hospital 2021-09-15 08:35:00 2021-09-15 09:50:00 Outpatient P ASHLEY PRABHAKAR [facility] [id number] General acute hospital 2021-09-15 08:35:00 2021-09-15 09:50:00 Hospital Encounter Prabhakar Ramirez [facility] 1.2840.114 350.1.13.10 4.2.7.2.686 [id number] General acute hospital 2021-09-14 10:11:30 2021-09-14 11:17:22 Routine Visit Prabhakar Ramirez [facility] 1.2.840.114 350.1.13.10 4.2.7.2.686 [id number] 134 [id number] General acute hospital 2021-09-14 09:41:50 2021-09-14 10:09:57 Shoemaker Custom Visit Ultrasound, [facility] Alicia L[facility]pez [facility] 1.2.840.114 350.1.13.10 4.2.7.2.686 [id number] 134 [id number] General acute hospital 2021-09-14 09:15:00 2021-09-14 10:09:57 Outpatient P ALICIA LÓPEZ [facility] [id number] General acute hospital 2021-09-14 00:00:00 2021-09-14 00:00:00 Case Management Prabhakar Ramirez [facility] 1.2.840.114 350.1.13.10 4.2.7.2.686 [id number] 134 [id number] General acute hospital 2021-09-13 13:47:00 2021-09-13 23:00:00 Outpatient P PRABHAKAR RAMIREZ [facility] [id number] General acute hospital 2021-09-13 13:47:00 2021-09-13 23:00:00 Hospital Encounter Prabhakar Ramirez [facility] 1.2.840.114 350.1.13.10 4.2.7.2.686 [id number] [id number] General acute hospital 2021-09-13 13:00:51 2021-09-13 13:38:06 Routine Visit Prabhakar Ramirez [facility] 1.2.840.114 350.1.13.10 4.2.7.2.686 [id number] 134 [id number] General acute hospital 2021-09-13 13:00:00 2021-09-13 13:38:06 Outpatient R PRABHAKAR RAMIREZ [facility] [id number] General acute hospital 2021-08-27 14:43:43 2021-08-27 16:18:18 Nurse Visit Nurse, [facility] Prabhakar Ramirez [facility] 1.2.840.114 350.1.13.10 4.2.7.2.686 [id number] 134 [id number] General acute hospital 2021-08-27 15:00:00 2021-08-27 15:00:00 Outpatient R [facility] [id number] General acute hospital 2021-08-25 11:21:52 2021-08-25 11:36:52 Routine Visit Prabhakar Ramirez [facility] 1.2.840.114 350.1.13.10 4.2.7.2.686 [id number] 134 [id number] General acute hospital 2021-08-25 11:15:00 2021-08-25 11:15:00 Outpatient R ASHLEY PRABHAKAR [facility] [id number] General acute hospital 2021-08-16 09:05:50 2021-08-16 09:20:50 Nurse Visit Nurse, [facility] Prabhakar Ramirez [facility] 1.2.840.114 350.1.13.10 4.2.7.2.686 [id number] 134 [id number] General acute hospital 2021-08-16 09:00:00 2021-08-16 09:00:00 Outpatient R [facility] [id number] General acute hospital 2021-08-11 11:31:25 2021-08-11 12:09:54 Routine Visit Prabhakar Ramirez Nancy [facility] 1.2.840.114 350.1.13.10 4.2.7.2.686 [id number] 134 [id number] General acute hospital 2021-08-11 11:30:00 2021-08-11 11:30:00 Outpatient R [facility] [id number] General acute hospital 2021-07-29 10:49:56 2021-07-29 11:04:56 Routine Visit Karis Anderson [facility] 1.2.840.114 350.1.13.10 4.2.7.2.686 [id number] 134 [id number] General acute hospital 2021-07-29 11:00:00 2021-07-29 11:00:00 Outpatient R [facility] [id number] General acute hospital 2021-07-28 00:00:00 2021-07-28 00:00:00 Telephone Prabhakar Ramirez [facility] 1.2.840.114 350.1.13.10 4.2.7.2.686 [id number] 134 [id number] General acute hospital 2021-07-27 09:15:00 2021-07-27 09:15:00 Outpatient R MONICA [facility] [id number] General acute hospital 2021-07-27 08:13:16 2021-07-27 08:28:16 Shoemaker Custom Visit 2, Adc Lab Gallosj Karis [facility] 1.2840.114 350.1.13.10 4.2.7.2.686 [id number] General acute hospital 2021-07-26 09:44:48 2021-07-26 10:26:01 Office Visit Prabhakar Ramirez [facility] 1.2840.114 350.1.13.10 4.2.7.2.686 [id number] 134 [id number] General acute hospital 2021-07-26 09:30:00 2021-07-26 09:30:00 Outpatient R PRABHAKAR RAMIREZ [facility] [id number] General acute hospital 2021-07-26 00:00:00 2021-07-26 00:00:00 Orders Only Doctor Unassigned, [place] [facility] 1.2840.114 350.1.13.10 4.2.7.2.686 [id number] [id number] General acute hospital 2021-07-06 08:15:00 2021-07-06 08:15:00 Outpatient R [facility] [id number] General acute hospital 2021-07-02 10:27:30 2021-07-02 11:12:30 Shoemaker Custom Visit Ultrasound, Adc Enedina Emery [facility] 1.2.840.114 350.1.13.10 4.2.7.2.686 [id number] 134 [id number] General acute hospital 2021-07-02 10:27:30 2021-07-02 11:12:30 Shoemaker Custom Visit Ultrasound, [facility] 1.2.840.114 350.1.13.10 4.2.7.2.686 [id number] 134 [id number] General acute hospital 2021-07-02 10:30:00 2021-07-02 10:30:00 Outpatient P [facility] [id number] General acute hospital 2021-07-02 09:23:48 2021-07-02 09:38:48 Shoemaker Custom Visit 2, Adc Lab Prabhakar Ramirez [facility] Building 1.2.840.114 350.1.13.10 4.2.7.2.686 [id number] 353 [id number] General acute hospital 2021-07-02 09:23:48 2021-07-02 09:38:48 Shoemaker Custom Visit 2, [facility] 1.2.840.114 350.1.13.10 4.2.7.2.686 [id number] 353 [id number] General acute hospital 2021-07-02 00:00:00 2021-07-02 00:00:00 Case Management Ashley Prabhakar [facility] 1.2.840.114 350.1.13.10 4.2.7.2.686 [id number] 134 [id number] General acute hospital 2021-07-02 00:00:00 2021-07-02 00:00:00 Case Management Ashley Prabhakar [facility] 1.2.840.114 350.1.13.10 4.2.7.2.686 [id number] 134 [id number] General acute hospital 2021-07-01 10:03:40 2021-07-01 10:55:59 Routine Visit Prabhakar Ramirez Nancy [facility] 1.2.840.114 350.1.13.10 4.2.7.2.686 [id number] 134 [id number] General acute hospital 2021-07-01 10:03:40 2021-07-01 10:55:59 Routine Visit Prabhakar Ramirez Nancy [facility] 1..840.114 350.1.13.10 4.2.7.2.686 [id number] 134 [id number] General acute hospital 2021-07-01 10:15:00 2021-07-01 10:15:00 Outpatient R KARIS ANDERSON [facility] [id number] General acute hospital 2021-06-25 10:00:00 2021-06-25 10:00:00 Outpatient P [facility] [id number] General acute hospital 2021-06-03 10:39:23 2021-06-03 12:30:38 Routine Visit Prabhakar Ramirez [facility] 1..840.114 350.1.13.10 4.2.7.2.686 [id number] 134 [id number] General acute hospital 2021-06-03 11:00:00 2021-06-03 11:00:00 Outpatient R PRABHAKAR RAMIREZ [facility] [id number] General acute hospital 2021-05-25 10:23:57 2021-05-25 11:32:47 Shoemaker Custom Visit 1, [facility] 1..840.114 350.1.13.10 4.2.7.2.686 [id number] General acute hospital 2021-05-25 10:30:00 2021-05-25 10:30:00 Outpatient P [facility] [id number] General acute hospital 2021-05-20 09:50:39 2021-05-20 10:50:39 Shoemaker Custom Visit Ultrasound, Adc Adeola Packer [facility] 1.2.840.114 350.1.13.10 4.2.7.2.686 [id number] 134 [id number] General acute hospital 2021-05-20 10:00:00 2021-05-20 10:00:00 Outpatient P [facility] [id number] General acute hospital 2021-05-20 00:00:00 2021-05-20 00:00:00 Orders Only Doctor Unassigned, [place] [facility] 1.2.840.114 350.1.13.10 4.2.7.2.686 [id number] General acute hospital 2021-05-07 10:53:03 2021-05-07 11:08:03 Shoemaker Custom Visit 2, Adc Prabhakar Katz [facility] 1.2.840.114 350.1.13.10 4.2.7.2.686 [id number] 353 [id number] General acute hospital 2021-05-07 09:15:00 2021-05-07 09:15:00 Outpatient R [facility] [id number] General acute hospital 2021-05-06 11:00:29 2021-05-06 11:39:03 Routine Visit Karis Anderson [facility] 1.2.840.114 350.1.13.10 4.2.7.2.686 [id number] 134 [id number] General acute hospital 2021-05-06 11:30:00 2021-05-06 11:30:00 Outpatient R MONICA KARIS [facility] [id number] General acute hospital 2021-04-21 00:00:00 2021-04-21 00:00:00 Case Management Monica Karis [facility] 1.2840.114 350.1.13.10 4.2.7.2.686 [id number] 134 [id number] General acute hospital 2021-04-16 00:00:00 2021-04-16 00:00:00 Orders Only Doctor Unassigned, [place] [facility] 1.2840.114 350.1.13.10 4.2.7.2.686 [id number] General acute hospital 2021-04-15 08:35:04 2021-04-15 09:43:04 Office Visit Ashley Prabhakar Jose [facility] 1.2840.114 350.1.13.10 4.2.7.2.686 [id number] General acute hospital 2021-04-15 09:00:00 2021-04-15 09:00:00 Outpatient R PRABHAKAR RAMIREZ [facility] [id number] General acute hospital 2021-04-15 00:00:00 2021-04-15 00:00:00 Telephone Ashley Prabhakarursula Garcia [facility] 1.2840.114 350.1.13.10 4.2.7.2.686 [id number] General acute hospital 2021-04-15 00:00:00 2021-04-15 00:00:00 Orders Only Doctor Unassigned, [place] [facility] 1.2840.114 350.1.13.10 4.2.7.2.686 [id number] General acute hospital 2021-04-09 09:17:54 2021-04-09 09:32:54 [employer]emaker Custom Visit 2, Adc Lab Prabhakar Ramirez Jose [facility] 1.2840.114 350.1.13.10 4.2.7.2.686 [id number] General acute hospital 2021-04-09 08:45:00 2021-04-09 08:45:00 Outpatient R PRABHAKAR RAMIREZ [facility] [id number] General acute hospital 2021-04-09 00:00:00 2021-04-09 00:00:00 Orders Only Doctor Unassigned, [place] [facility] 1.2.840.114 350.1.13.10 4.2.7.2.686 [id number] General acute hospital 2021-04-08 16:21:16 2021-04-08 16:36:16 Routine Visit Karis Anderson [facility] 1.2.840.114 350.1.13.10 4.2.7.2.686 [id number] General acute hospital 2021-04-08 16:30:00 2021-04-08 16:30:00 [facility] [id number] General acute hospital 2021-04-08 11:24:53 2021-04-08 11:39:53 [employer]emaker Custom Visit 2, Adc Lab Delvin Ramirezen [facility] 1.2.840.114 350.1.13.10 4.2.7.2.686 [id number] General acute hospital 2021-04-08 11:00:00 2021-04-08 11:00:00 Outpatient R PRABHAKAR RAMIREZ [facility] [id number] General acute hospital 2021-03-10 13:45:00 2021-03-10 15:10:55 Initial Visit Prabhakar Ramirez [facility] 1.2.840.114 350.1.13.10 4.2.7.2.686 [id number] General acute hospital 2021-03-10 14:00:00 2021-03-10 14:00:00 Outpatient R PRABHAKAR RAMIREZ [facility] [id number] General acute hospital 2021-03-10 00:00:00 2021-03-10 00:00:00 Orders Only Doctor Unassigned, [place] [facility] 1.2.840.114 350.1.13.10 4.2.7.2.686 [id number] General acute hospital 2021-02-25 14:30:00 2021-02-25 14:30:00 Outpatient R PRABHAKAR RAMIREZ [facility] [id number] General acute hospital 2020-06-24 14:00:00 2020-06-24 14:00:00 Outpatient R KARIS ANDERSON [facility] [id number] General acute hospital 2020-05-28 14:15:00 2020-05-28 14:15:00 Outpatient R PRABHAKAR RAMIREZ [facility] [id number] General acute hospital 2020-05-18 10:04:17 2020-05-18 10:19:17 [employer] Custom Visit 2, Adc Lab Prabhakar Ramirez [facility] [id number] General acute hospital 2020-05-18 09:30:00 2020-05-18 09:30:00 Outpatient R [facility] [id number] General acute hospital 2020-05-15 09:46:38 2020-05-15 10:45:31 Office Visit Prabhakar Ramirez [facility] [id number] General acute hospital 2020-05-15 10:00:00 2020-05-15 10:00:00 Outpatient R PRABHAKAR RAMIREZ [facility] [id number] General acute hospital 2019-11-22 00:14:00 2019-11-28 03:44:52 Inpatient Mei Romero [facility] [id number] [facility] 2019-11-22 05:45:00 2019-11-22 05:45:00 Outpatient Mei Landeros [facility] [id number] 88 [facility] Results Test Description Test Time Test Comments Results Result Co mments Source [facility] [id number] 13:51:00* Test Item Value Reference Range Interpretation Comme nts POCT PREG (test code = 1605) Negative On board controls acceptable with C Line (test code = 3574) Yes POCT PREG LOT # (test code = 3575) POCT PREG TEST DATE ( test code = 3576) [facility] URINALYSIS W/O SPECIFIC [id number] 16:18:00* Test Item Value Reference Range Interpretation Comme nts POCT PH U (test code = 3254) 7 mg/dl 5-8 POCT U LEUK EST (test code = 3263) Negative Negative - Negative POCT U NIT (test code = 3262) Negative Negative - Negati ve POCT U PROT (test code = 3259) Negative Negative - Negat jaci POCT U GLU (test code = 3256) Normal Negative - Negati ve POCT U KETONE (test code = 3258) Negative Negative - Neg ative POCT U BLD (test code = 3257) 250 Negative - Negati ve General acute hospital with [id number] 14:11:07* Test Item Value Reference Range Interpretation Comme nts WBC (test code = 6690-2) 14.15 See_Comment H [Automated message] The system which generated this result transmitted reference range: 4.30 - 11.10 10*3/?L. The reference range was not used to interpret this result as normal/abnormal. RBC (test code = 789-8) 3.70 See_Comment L [Automated message] The system which generated this result transmitted reference range: 3.93 - 5.25 10*6/?L. The reference range was not used to interpret this result as normal/abnormal. HGB (test code = 718-7) 8.6 g/dL 11.6-15.0 L HCT (test code = 4544-3) 28.5 % 35.7-45.2 L MCV (test code = 787-2) 77.0 fL 80.6-95.5 L MCH (test code = 785-6) 23.2 pg 25.9-32.8 L MCHC (test code = 786-4) 30.2 g/dL 31.6-35.1 L RDW-SD (test code = 15511-6) 58.2 fL 39.0-49.9 H RDW-CV (test code = 788-0) 21.3 % 12.0-15.5 H PLT (test code = 777-3) 290 See_Comment [Automated message] The system which generated this result transmitted reference range: 166 - 358 10*3/?L. The reference range was not used to interpret this result as normal/abnormal. MPV (test code = 19817-3) 12.2 fL 9.5-12.9 NRBC/100 WBC (test code = 9531720990) 0.0 See_Comment [Automated message] The system which generated this result transmitted reference range: 0.0 - 10.0 /100 WBCs. The reference range was not used to interpret this result as normal/abnormal. NRBC x10^3 (test code = 1864386143) See_Comment [Automated message] The system which generated this result transmitted reference range: 10*3/?L. The reference range was not used to interpret this result as normal/abnormal. GRAN MAT (NEUT) % (test code = 770-8) 83.9 % IMM GRAN % (test code = 3024285470) 0.40 % LYMPH % (test code = 736-9) 8.6 % MONO % (test code = 5905-5) 7.0 % EOS % (test code = 713-8) 0.0 % BASO % (test code = 706-2) 0.1 % GRAN MAT x10^3(ANC) (test code = 7180277256) 11.87 10*3/uL 1.88-7.09 H IMM GRAN x10^3 (test code = 0170911364) 0.06 10*3/uL 0.00-0.06 LYMPH x10^3 (test code = 731-0) 1.21 10*3/uL 1.32-3.29 L MONO x10^3 (test code = 742-7) 0.99 10*3/uL 0.33-0.92 H EOS x10^3 (test code = 711-2) 0.03-0.39 L BASO x10^3 (test code = 704-7) 0.01-0.07 Lab Interpretation (test code = 29668-4) [facility]normal [facility] IMMUNE [id number] 11:43:47* Test Item Value Reference Range Interpretation Comme nts RHIG CANDIDATE? (test code = 5055) No- see comment Patient is not a candidate for RhIg- Patient is Rh Positive.Performed at [facility] Laboratory Services - [facility] Blood [address] [place] [address]Gcwo Free: [phone] No. [id number] [facility] [id number] 05:47:22* Test Item Value Reference Range Interpretation Comme nts VENOUS BASE EXCESS, CORD (test code = 7935071511) -0.3 mEq/L VENOUS PH, CORD (test code = 7880248406) 7.40 7.25-7.45 VENOUS PC02, CORD (test code = 2184871714) 41 See_Comment [Automated messa ge] The system which generated this result transmitted reference range: 27 - 49 mmHg. The reference range was not used to interpret this result as normal/abnormal. VENOUS PO2, CORD (test code = 3745589782) 26 See_Comment [Automated me ssage] The system which generated this result transmitted reference range: 17 - 41 mmHg. The reference range was not used to interpret this result as normal/abnormal. VENOUS BICARBONATE, CORD (test code = 9755929263) 25 See_Comment QUES [Automated message] The system which generated this result transmitted reference range: 12 - 29 mEq/L. The reference range was not used to interpret this result as normal/abnormal. [facility] [id number] 05:47:17* Test Item Value Reference Range Interpretation Comme nts BASE EXCESS, CORD (test code = 4348788666) 0.4 mEq/L QUES AC PH, CORD (BEAKER) (test code = 8488797631) 7.34 7.18-7.38 PC02, CORD (test code = 1099703482) 51 See_Comment [Automated messa ge] The system which generated this result transmitted reference range: 32 - 66 mmHg. The reference range was not used to interpret this result as normal/abnormal. PO2, CORD (test code = 3133076579) 20 See_Comment [Automated [employer]] The system which generated this result transmitted reference range: 10 - 30 mmHg. The reference range was not used to interpret this result as normal/abnormal. BICARBONATE, CORD (test code = 0723420602) 27 See_Comment [Automated [employer]] The system which generated this result transmitted reference range: 17 - 27 mEq/L. The reference range was not used to interpret this result as normal/abnormal. [facility] Hospital[facility] [id number] 22:26:32* Test Item Value Reference Range Interpretation Comme [facility] URIC ACID (test code = 3470975138) 3.5 mg/dL 2.9-6.0 Lab Interpretation (test cod e = 74569-3) Normal [facility] [id number] 22:26:32* Test Item Value Reference Range Interpretation Comme [facility] CREATININE (test code = 5829834734) 0.30 mg/dL 0.50-1.04 L eGFR (test code = 7626505732) 257.8 mL/min/1.73m2 DEION (test code = DEION) Association of Glomerular Filtration Rate (GFR) and Staging of Kidney Disease* + --+ --+ ------+| GFR (mL/min/1.73 m2) ?| With Kidney Damage ?| ?Without Kidney Damage+ --------+ --------+ +| ?>90 ?| ?Stage one ?| ? Normal ?+ ---+ ---+ -------+| ?60-89 ?| ?Stage two ?| ? Decreased GFR ? + --+ --+ ------+| ?30-59 ?| ?Stage three ?| ? Stage three ? + --+ --+ ------+| ?15-29 ?| ?Stage four ? | ? Stage four ?+ ---+ ---+ -------+| ?<15 (or dialysis) ? ?| ?Stage five ? | ? Stage five ?+ ---+ ---+ -------+ *Each stage assumes the associated GFR level has been in effect for at least three months. ?Stages 1 to 5, with or without kidney disease, indicate chronic kidney disease. Notes: Determination of stages one and two (with eGFR >59mL/min/1.73 m2) requires estimation of kidney damage for at least three months as defined by structural or functional abnormalities of the kidney, manifested by either:Pathological abnormalities or Markers of kidney damage (including abnormalities in the composition of the blood or urine or abnormalities in imaging tests). Lab Interpretation (test code = 56889-9) Abnormal [facility] (Asparate Amino Transfer)2022-12-14 22:26:32* Test Item Value Reference Range Interpretation Comme nts AST(SGOT) (test code = 4735533801) 25 U/L 13-40 Lab Interpretation (test cod e = 16053-2) Normal [facility] HospitalAlanine Amino Transferase (SGPT)2022-12-14 22:26:32* Test Item Value Reference Range Interpretation Comme nts ALTv (test code = 1742-6) 24 U/L 5-35 Lab Interpretation (test cod e = 72446-6) Normal [facility] HospitalType and Screen - ONCE [id number] 22:26:11 * Test Item Value Reference Range Interpretation Comme nts ABO & RH (test code = 20) B POSITIVE Performed at [facility] Laboratory Services - [facility] Blood [address] Free: [phone] No. [id number] IAT (test code = 1185) Negative Performed at [facility] Laboratory Services - [facility] Blood [address] Free: [phone] No. [id number] [facility] HospitalLactate [id number] 22:25:06* Test Item Value Reference Range Interpretation Comme nts LDH (test code = 4258813278) 204 U/L 120-246 Lab Interpretation (test cod e = 53181-3) Normal General acute hospital with [id number] 22:21:33* Test Item Value Reference Range Interpretation Comme nts WBC (test code = 6690-2) 12.14 See_Comment H [Automated messa ge] The system which generated this result transmitted reference range: 4.30 - 11.10 10*3/?L. The reference range was not used to interpret this result as normal/abnormal. RBC (test code = 789-8) 4.33 See_Comment [Automated [employer]] The system which generated this result transmitted reference range: 3.93 - 5.25 10*6/?L. The reference range was not used to interpret this result as normal/abnormal. HGB (test code = 718-7) 10.1 g/dL 11.6-15.0 L HCT (test code = 4544-3) 33.1 % 35.7-45.2 L MCV (test code = 787-2) 76.4 fL 80.6-95.5 L MCH (test code = 785-6) 23.3 pg 25.9-32.8 L MCHC (test code = 786-4) 30.5 g/dL 31.6-35.1 L RDW-SD (test code = 93069-5) 57.7 fL 39.0-49.9 H RDW-CV (test code = 788-0) 21.3 % 12.0-15.5 H PLT (test code = 777-3) 265 See_Comment [Automated [employer]] The system which generated this result transmitted reference range: 166 - 358 10*3/?L. The reference range was not used to interpret this result as normal/abnormal. MPV (test code = 44273-8) 11.1 fL 9.5-12.9 IPF % (test code = 6499220847) 8.9 % 1.3-7.7 H Platelet count measured by fluorescence method. NRBC/100 WBC (test code = 8264938447) 0.0 See_Comment [Automated [employer] ssage] The system which generated this result transmitted reference range: 0.0 - 10.0 /100 WBCs. The reference range was not used to interpret this result as normal/abnormal. NRBC x10^3 (test code = 0716801324) See_Comment [Automated [employer]] The system which generated this result transmitted reference range: 10*3/?L. The reference range was not used to interpret this result as normal/abnormal. GRAN MAT (NEUT) % (test code = 770-8) 88.7 % IMM GRAN % (test code = 7648588075) 0.50 % LYMPH % (test code = 736-9) 8.5 % MONO % (test code = 5905-5) 2.0 % EOS % (test code = 713-8) 0.1 % BASO % (test code = 706-2) 0.2 % GRAN MAT x10^3(ANC) (test code = 4620155543) 10.78 10*3/uL 1.88-7.09 H IMM GRAN x10^3 (test code = 5705709569) 0.06 10*3/uL 0.00-0.06 LYMPH x10^3 (test code = 731-0) 1.03 10*3/uL 1.32-3.29 L MONO x10^3 (test code = 742-7) 0.24 10*3/uL 0.33-0.92 L EOS x10^3 (test code = 711-2) 0.03-0.39 L BASO x10^3 (test code = 704-7) 0.01-0.07 Lab Interpretation (test code = 97559-4) Abnormal [facility] - ONCE [id number] 19:29:42 * Test Item Value Reference Range Interpretation Comme nts ABO & RH (test code = 20) B Positive Performed at [facility] Laboratory Services [facility] Blood [address] Free: [phone] No. [id number] IAT (test code = 1185) Negative Performed at [facility] Laboratory [facility] Blood [place] [address]Toll Free: [phone] No. [id number] [facility] HospitalPO[facility] URINALYSIS W/O SPECIFIC [id number] 17:29:00* Test Item Value Reference Range Interpretation Comme nts POCT PH U (test code = 3254) n/a 5-8 POCT U LEUK EST (test code = 3263) n/a Negative - N egative POCT U NIT (test code = 3262) n/a Negative - Negati ve POCT U PROT (test code = 3259) neg Negative - Negat jaci POCT U GLU (test code = 3256) neg Negative - Negati ve POCT U KETONE (test code = 3258) n/a Negative - Neg ative POCT U BLD (test code = 3257) n/a Negative - Negati ve [facility] URINALYSIS W/O SPECIFIC [id number] 16:46:00* Test Item Value Reference Range Interpretation Comme nts POCT PH U (test code = 3254) n/a 5-8 POCT U LEUK EST (test code = 3263) n/a Negative - Negative POCT U NIT (test code = 3262) n/a Negative - Negati ve POCT U PROT (test code = 3259) Negative Negative - Negat jaci POCT U GLU (test code = 3256) Normal Negative - Negati ve POCT U KETONE (test code = 3258) n/a Negative - Neg ative POCT U BLD (test code = 3257) n/a Negative - Negati ve [facility] URINALYSIS W/O SPECIFIC [id number] 15:39:00* Test Item Value Reference Range Interpretation Comme nts POCT PH U (test code = 3254) N/A 5-8 POCT U LEUK EST (test code = 3263) N/A Negative - Negative POCT U NIT (test code = 3262) N/A Negative - Negati ve POCT U PROT (test code = 3259) NEGATIVE Negative - Negat jaci POCT U GLU (test code = 3256) NORMAL Negative - Negati ve POCT U KETONE (test code = 3258) N/A Negative - Neg ative POCT U BLD (test code = 3257) N/A Negative - Negati ve [facility] URINALYSIS W/O SPECIFIC [id number] 17:04:00* Test Item Value Reference Range Interpretation Comme nts POCT PH U (test code = 3254) n/a 5-8 POCT U LEUK EST (test code = 3263) n/a Negative - N egative POCT U NIT (test code = 3262) n/a Negative - Negati ve POCT U PROT (test code = 3259) neg Negative - Negat jaci POCT U GLU (test code = 3256) neg Negative - Negati ve POCT U KETONE (test code = 3258) n/a Negative - Neg ative POCT U BLD (test code = 3257) n/a Negative - Negati ve [facility] W/O SPECIFIC [id number] 19:22:00* Test Item Value Reference Range Interpretation Comme nts POCT PH U (test code = 3254) n/a 5-8 POCT U LEUK EST (test code = 3263) n/a Negative - Negative POCT U NIT (test code = 3262) n/a Negative - Negati ve POCT U PROT (test code = 3259) negative Negative - Negat jaci POCT U GLU (test code = 3256) negative Negative - Negati ve POCT U KETONE (test code = 3258) n/a Negative - Neg ative POCT U BLD (test code = 3257) n/a Negative - Negati ve [facility] W/O SPECIFIC [id number] 20:08:00* Test Item Value Reference Range Interpretation Comme nts POCT PH U (test code = 3254) n/a 5-8 POCT U LEUK EST (test code = 3263) n/a Negative - N egative POCT U NIT (test code = 3262) n/a Negative - Negati ve POCT U PROT (test code = 3259) neg Negative - Negat jaci POCT U GLU (test code = 3256) neg Negative - Negati ve POCT U KETONE (test code = 3258) n/a Negative - Neg ative POCT U BLD (test code = 3257) n/a Negative - Negati ve [facility] HospitalPROTHROMBIN [id number] 05:29:00* Test Item Value Reference Range Interpretation Comme nts PROTHROMBIN TIME PATIENT (te st code = PTP) 11.2 secs 10.4-12.4 N THROMBOPLASTIN TIME [id number] 05:29:00* Test Item Value Reference Range Interpretation Comme nts THROMBOPLASTIN TIME PARTIAL (test code = PTT) 26.9 secs 22-38 N HGB [id number] 05:17:00* Test Item Value Reference Range Interpretation Comme nts HEMOGLOBIN (test code = HGB) 9.6 g/dL 10.7-13.9 L HEMATOCRIT (test code = HCT) 31.5 % 32.1-42.1 L AG HEPATITIS B [id number] 04:01:00* Test Item Value Reference Range Interpretation Comme nts AG HEPATITIS B SURFACE (test code = HBSAG) NONREACTIVE NONREACTIVE AB HEPATITIS C [id number] 04:01:00* Test Item Value Reference Range Interpretation Comme nts AB HEPATITIS C (test code = HCVAB) NONREACTIVE NONREACTIVE SIGNAL TO CUTOFF (test code = CUTOFF) 0.03 <0.80 N AB [id number] 04:01:00* Test Item Value Reference Range Interpretation Comme nts AB TREPONEMA (test code = TREPAB) NONREACTIVE NONREACTIVE AB HIV 1 04:01:00* Test Item Value Reference Range Interpretation Comme nts AB HIV 1 2 (test code = ZZP92LB) Nonreactive NonReactive It is recognized that currently available assays for thedetection of antibodies to HIV-1 and/or HIV-2 may notdetect all infected individuals. A negative test result doesnot exclude the possibility of exposure to or infection withHIV. HIV antibodies may be undetectable in some stages ofthe infection and in some clinical conditions. AB HIV 1 04:00:00* Test Item Value Reference Range Interpretation Comme nts AB HIV 1 2 (test code = ORN51OI) Nonreactive NonReactive It is recognized that currently available assays for thedetection of antibodies to HIV-1 and/or HIV-2 may notdetect all infected individuals. A negative test result doesnot exclude the possibility of exposure to or infection withHIV. HIV antibodies may be undetectable in some stages ofthe infection and in some clinical conditions. AG HEPATITIS B [id number] 01:48:00* Test Item Value Reference Range Interpretation Comme nts AG HEPATITIS B SURFACE (test code = HBSAG) NONREACTIVE NONREACTIVE AB HEPATITIS C [id number] 01:48:00* Test Item Value Reference Range Interpretation Comme nts AB HEPATITIS C (test code = HCVAB) NONREACTIVE NONREACTIVE SIGNAL TO CUTOFF (test code = CUTOFF) 0.03 <0.80 N AB [id number] 01:48:00* Test Item Value Reference Range Interpretation Comme nts AB TREPONEMA (test code = TREPAB) NONREACTIVE NONREACTIVE AB HIV 1 01:48:00* Test Item Value Reference Range Interpretation Comme nts AB HIV 1 2 (test code = YIN81KT) NONREACTIVE COMPREHENSIVE METABOLIC [id number] 00:50:00* Test Item Value Reference Range Interpretation Comme nts SODIUM (test code = NA) 135 mEq/L 135-145 N POTASSIUM (test code = K) 4.1 mEq/L 3.5-5.0 N CHLORIDE (test code = CL) 101 mEq/L 100-115 N CARBON DIOXIDE (test code = CO2) 24 mEq/L 22-31 N ANION GAP (test code = GAP) 14.20 10-20 N GLUCOSE (test code = GLU) 94 mg/dL 65-110 N BLOOD UREA NITROGEN (test co de = BUN) 7 mg/dL 7-18 N GLOMERULAR FILTRATION RATE ( test code = GFR) 146 ml/min >60 N CREATININE (test code = CREAT) 0.5 mg/dL 0.5-1.0 N TOTAL PROTEIN (test code = PROT) 6.7 gm/dL 6.3-8.2 N ALBUMIN (test code = ALB) 2.9 gm/dL 3.4-4.8 L CALCIUM (test code = CA) 8.7 mg/dL 8.4-10.2 N BILIRUBIN TOTAL (test code = BILT) 0.3 mg/dL 0.2-1.0 N SGOT/AST (test code = AST) 28 units/L 15-37 N SGPT/ALT (test code = ALT) 40 units/L 12-78 N ALKALINE PHOSPHATASE TOTAL ( test code = ALKP) 200 units/L 46-116 H URIC [id number] 00:50:00* Test Item Value Reference Range Interpretation Comme nts URIC ACID (test code = URIC) 3.9 mg/dL 2.6-6.0 N LACTIC DEHYDROGENASE(LDH)2019-11-22 00:50:00* Test Item Value Reference Range Interpretation Comme nts LACTIC DEHYDROGENASE(LDH) (t est code = LDH) 196 units/L 81-234 N CBC W/AUTO [id number] 00:28:00* Test Item Value Reference Range Interpretation Comme nts WHITE BLOOD CELL (test code = WBC) 16.5 K/mm3 6.6-12.1 H RED BLOOD CELL (test code = RBC) 4.31 M/mm3 3.45-5.01 N HEMOGLOBIN (test code = HGB) 11.3 g/dL 10.7-13.9 N HEMATOCRIT (test code = HCT) 35.4 % 32.1-42.1 N MEAN CELL VOLUME (test code = MCV) 82 fL 84.1-94.8 L MEAN CELL HGB (test code = MCH) 26.2 pg 27-35 L MEAN CELL HGB CONCETRATION ( test code = MCHC) 31.9 gm/dL 32.2-34.1 L RED CELL DISTRIBUTION WIDTH (test code = RDW) 14.8 % 12.4-16.5 N PLATELET COUNT (test code = PLT) 264 K/mm3 133-385 N IMMATURE PLATELET FRACTION ( test code = IPF) 0.0 % 0.0-10.8 N MEAN PLATELET VOLUME (test c ode = MPV) 11.9 fl 9.1-12.7 N NEUTROPHIL % (test code = NT%) 84.3 % 56.5-79.4 H LYMPHOCYTE % (test code = LY%) 9.2 % 14.3-34.3 L MONOCYTE % (test code = MO%) 5.7 % 5.1-10.4 N EOSINOPHIL % (test code = EO%) 0.2 % 0.1-3.0 N BASOPHIL % (test code = BA%) 0.2 % 0.1-1.0 N NEUTROPHIL # (test code = NT#) 13.9 K/mm3 LYMPHOCYTE # (test code = LY#) 1.5 K/mm3 MONOCYTE # (test code = MO#) 0.9 K/mm3 EOSINOPHIL # (test code = EO#) 0.03 K/mm3 BASOPHIL # (test code = BA#) 0.0 K/mm3 RBC MORPHOLOGY REQUIRED (dar t code = RBCM) NORMAL NORMAL PLATELET MORPHOLOGY REQUIRED (test code = PLTMR) NORMAL NORMAL URINALYSIS [id number] 23:13:00* Test Item Value Reference Range Interpretation Comme nts UA COLOR (test code = COLU) YELLOW UA APPEARANCE (test code = APPU) CLEAR UA GLUCOSE DIPSTICK (test code = DGLUU) NEGATIV E UA BILIRUBIN DIPSTICK (test code = BILU) NEGATIVE UA KETONE DIPSTICK (test code = KETU) NEGATIVE UA SPECIFIC GRAVITY (test code = SGU) 1.001-1.0 35 UA BLOOD DIPSTICK (test code = ALEKSANDRA) NEGATIVE UA PH DIPSTICK (test code = MARTA) 5-9 UA PROTEIN DIPSTICK (test code = PROU) NEGATIVE UA UROBILINIOGEN DIPSTICK (t est code = URO) mg/dL NEG UA NITRITE DIPSTICK (test code = RIN) NEGATIVE UA LEUKOCYTE ESTERASE DIPSTI CK (test code = LEUU) NEG UA WBC (test code = WBCU) #/hpf NONE SEEN UA EPITHELIAL CELLS (test code = EPIU) #/HPF RARE-FEW URINE SAMPLE: CLEAN CATCHUR PROTEIN/CREATININE [id number] 23:13:00* Test Item Value Reference Range Interpretation Comme nts UR PROTEIN RANDOM (test code = PROTU) 16.2 mg/dL UR CREATININE RANDOM (test code = CREATU) 67.9 mg/dL PROTEIN/CREATININE RATIO (te st code = P/CRATIO) 230.0 mg/gcrea <200 H URINE SAMPLE: CLEAN CATCHURINALYSIS [id number] 23:13:00* Test Item Value Reference Range Interpretation Comme nts UA COLOR (test code = COLU) YELLOW YELLOW UA APPEARANCE (test code = APPU) Slightly-Cloudy CLEAR UA GLUCOSE DIPSTICK (test code = DGLUU) NEGATIVE NEG UA BILIRUBIN DIPSTICK (test code = BILU) NEGATIVE NEG UA KETONE DIPSTICK (test cod e = KETU) TRACE NEG A UA SPECIFIC GRAVITY (test code = SGU) 1.012 1.001-1.035 N UA BLOOD DIPSTICK (test code = ALEKSANDRA) 2+ NEG A UA PH DIPSTICK (test code = MARTA) 5.0 5-9 UA PROTEIN DIPSTICK (test code = PROU) NEGATIVE NEG UA UROBILINIOGEN DIPSTICK (test code = URO) NEGATIVE mg/dL NEG UA NITRITE DIPSTICK (test code = RIN) NEG NEG UA LEUKOCYTE ESTERASE DIPSTICK (test code = LEUU) 1+ NEG A UA WBC (test code = WBCU) 6-10 #/hpf NONE SEEN A UA RBC (test code = RBCU) 0-2 #/hpf NONE SEEN UA EPITHELIAL CELLS (test code = EPIU) RARE #/HPF RARE-FEW UA MUCUS (test code = MUCU) RARE NONE SEEN URINE SAMPLE: CLEAN CATCHUR PROTEIN/CREATININE [id number] 23:13:00* Test Item Value Reference Range Interpretation Comme nts UR PROTEIN RANDOM (test code = PROTU) 16.2 mg/dL UR CREATININE RANDOM (test code = CREATU) 67.9 mg/dL PROTEIN/CREATININE RATIO (te st code = P/CRATIO) 230.0 mg/gcrea <200 H URINE SAMPLE: CLEAN CATCHDRUGS OF ABUSE [id number] 23:11:00* Test Item Value Reference Range Interpretation Comme nts UR COCAINE (test code = COCAU) NEGATIVE NEGATIVE DETECTION CUT OF F: 150 ng/mL UR CANNABINOIDS (test code = CANU) NEGATIVE NEGATIVE DETECTION CUT OF F: 50 ng/mL UR AMPHETAMINE (test code = AMPHU) NEGATIVE NEGATIVE DETECTION CUT OF F: 500 ng/mL UR BARBITURATE QUAL (test code = BARBQLU) NEGATIVE NEGATIVE DETECTION CUT OF F: 200 ng/mL UR BENZODIAZEPINE (test code = BENZU) NEGATIVE NEGATIVE DETECTION CUT OF F: 150 ng/mL UR OPIATES QUAL (test code = OPIAQLU) NEGATIVE NEGATIVE DETECTION CUT OF F: 100 ng/mL UR PHENCYCLIDINE (PCP) (test code = PHENCU) NEGATIVE NEGATIVE DETECTION C UT OFF: 25 ng/mL Notes Date/Time Note Provider Source 2019-11-24 11:13:00 [facility] ([facility]) Discharge Summary REPORT#:[id number] REPORT STATUS: Signed DATE:11/24/19 TIME: 1113 PATIENT: OSITO JIN UNIT #: [id number] ROOM/BED: [address] : 90 AGE: 29 SEX: F ATTEND: Mei Landeros MD ADM AUTHOR: Yohana Oshea MD * ALL edits or amendments must be made on the electronic/computer document * General Information Free Text A P: term suspected macrosomia Date of admission: Observation Start Date: Date of admission: 11/22/19 Date of discharge: 11/24/19 Admission diagnosis: term active labor suspected macrosomia Discharge diagnosis: term Hospital course: pt presented to [facility] in active labor and G[facility]N was admitted had consult with MFM Dr. Delvalle found no macrosomia proceeded with Trial of Labor. pt underwent of . routine post course. and discharge home Med Rec PCP PCP: PCP: Mei Landeros MD Med Rec Discharge meds: Continue taking these medications: PNV WITH FE FUMARATE/FA () 1 EACH TAB 1 TABLET ORAL DAILY. Start taking the following new medications: ACETAMINOPHEN (TYLENOL) 325 MG TAB 650 MILLIGRAM ORAL EVERY 4 HOURS NEEDED. as needed for MILD PAIN (SCORE 1 - 3) Qty = 30 No Refills IBUPROFEN (MOTRIN) 600 MG TAB 600 MILLIGRAM ORAL EVERY 6 HOURS NEEDED. as needed for MILD PAIN NOT RELIEVED BY TYL. Qty = 30 No Refills Objective VS/I O Last Documented: Result Date Time B/P 116/78 11/23 1726 Temp 97.8 11/23 1726 Pulse 69 11/23 172 Resp 20 11/23 1727 B/P Mean 86.0 11/22 1731 Patient Weight Weight (lb): 220 Weight (oz): Weight (kg): 99.79 General appearance: alert, awake, oriented Cardiovascular: regular rate rhythm, normal heart sounds Respiratory: clear to auscultation GI: soft, non-tender, no guarding, fundus firm nontender Extremities: moves all, no edema-all extremities, no calf tenderness, no evidence of DVT Considered stroke alert: no Discharge Instructions Diet: regular Oral fluid restriction: No Activity: as tolerated, light duty, no lifting greater than baby in carrier Notify provider of these s/s: fevers/chills/angel/change in vision/cp/sob/n/v/leg pain/vb greater 1 pad per hour Time spent: Time spent with patient (minutes): 10 >50% spent on counseling/coordination of care: yes Free Text DC Notes Free Text DC Notes: f/u with primary ob Quality Medications Current medication review: I attest that the foregoing medication list in the medical record is true, accurate, and complete to the best of my knowledge. VTE Prophylaxis VTE prophylaxis initiated: no-patient low risk at 1121 RPT #:[id number] END OF REPORT [facility] 2019-11-24 11:09:00 [facility] ([facility]) OB Postpart Progr Note REPORT#:[id number] REPORT STATUS: Signed DATE:11/24/19 TIME: 1109 PATIENT: OSITO JIN UNIT #: [id number] ROOM/BED: [address] : 90 AGE: 29 SEX: F ATTEND: Mei Landeros MD ADM AUTHOR: Yohana Oshea MD * ALL edits or amendments must be made on the electronic/computer document * Subjective Subjective Admission EGA (wks/days): 39 weeks Comments: ambulating/voiding/tolerating po. no cp/sob/n/v/leg pain/lochia appropriate. breast and bottle feeding Objective Nursing Documentation Review Nursing data: The data set between the solid lines has been imported from nursing documentation. Any exceptions have been noted below under Provider comments. Feeding preference: Provider comments on imported nursing data: [] General VS: Vital Signs Date Temp Pulse Resp B/P B/P Mean Pulse Ox FiO2 11/23 97.8 69 20 116/78 Last Documented: Result Date Time B/P 116/78 11/23 1726 Temp 97.8 11/23 1726 Pulse 69 11/23 1726 Resp 20 11/23 1726 B/P Mean 86.0 11/22 1730 Patient Weight Weight (lb): 220 Weight (oz): Weight (kg): 99.79 Physical Exam Cardiac: normal rhythm Lungs: clear to auscultation Abdomen: soft, no abnormal tenderness, normoactive bowel sounds Uterus: firm, non-tender Fundus: firm Lacerations: High vaginal laceration: no Diagnosis, Assessment Plan Diagnosis, Assessment Plan Free text A P: PPD#2 s/p doing well ready for discharge plan: discharge home discharge instructions given f/u primary ob for pp visit at 1111 RPT #:[id number] END OF REPORT [facility] 2019-11-23 07:16:00 [facility] OB Postpart Progr Note REPORT#:[id number] REPORT STATUS: Signed DATE:11/23/19 TIME: 715 PATIENT: OSITO JIN UNIT #: [id number] ROOM/BED: [address] : 90 AGE: 29 SEX: F ATTEND: Mei Landeros MD ADM AUTHOR: Shobha Owens MD * ALL edits or amendments must be made on the electronic/computer document * Subjective Subjective EGA weeks/days: 39 weeks (11/12) Status/Day: post (Day #1) Patient reports: Patient reports: Yes no complaints, Yes normal lochia, Yes pain management effective, Yes tolerating po well, Yes voiding well, Yes difficulty nursing, No nausea, No vomiting, No excessive bleeding, No abdominal pain, No headache, No blurred vision Comments: Reports that was lying on cuff when BP was being taken yesterday when had some of her elevated values Objective Nursing Documentation Review Nursing Data: The data set between the solid lines has been imported from nursing documentation. Any exceptions have been noted below under Provider comments. Feeding preference: Provider comments on imported nursing data: [] General VS: Vital Signs: Date Time Temp Pulse Resp B/P B/P Pulse O2 O2 Flow FiO2 Mean Ox Delivery Rate 11/22 1805 98.8 89 18 121/77 11/22 1731 86.0 11/22 1731 87 126/63 11/22 1716 94.0 11/22 1716 70 136/65 11/22 1701 88.0 11/22 1701 82 131/61 11/22 1646 86.0 11/22 1646 80 121/64 11/22 1631 88.0 11/22 1631 78 129/61 11/22 1616 94.0 11/22 1616 88 136/65 11/22 1601 98.0 11/22 1601 86 140/71 11/22 1546 110.0 11/22 1546 92 149/90 11/22 1531 95.0 11/22 1531 105 135/69 11/22 1525 98.7 16 11/22 1516 94.0 11/22 1516 86 133/65 11/22 1501 91.0 11/22 1501 102 126/70 11/22 1448 99.0 11/22 1448 99 139/72 11/22 1431 90.0 11/22 1431 93 129/63 11/22 1417 100.0 11/22 1417 85 142/74 11/22 1401 112.0 11/22 1401 92 158/85 11/22 1346 102.0 11/22 1346 85 136/76 11/22 1331 108.0 11/22 1331 95 138/89 11/22 1316 94.0 11/22 1316 95 140/66 11/22 1315 98.9 18 11/22 1301 97.0 11/22 1301 87 135/71 11/22 1246 113.0 11/22 1246 105 143/98 11/22 1232 99.0 11/22 1232 111 135/75 11/22 1216 109.0 11/22 1216 96 143/86 11/22 1202 108.0 11/22 1202 108 138/87 11/22 1146 94.0 11/22 1146 96 128/71 11/22 1132 94.0 11/22 1132 102 123/75 11/22 1116 102.0 11/22 1116 108 132/82 11/22 1101 100.0 11/22 1101 111 143/71 11/22 1046 100.0 11/22 1046 117 135/78 11/22 1032 92.0 11/22 1032 109 125/70 11/22 1016 103.0 11/22 1016 111 138/81 11/22 1002 90.0 11/22 1002 108 123/70 11/22 0946 82.0 11/22 0946 114 113/63 11/22 0931 89.0 11/22 0931 112 122/68 11/22 0916 92.0 11/22 0916 108 125/73 11/22 0846 82.0 11/22 0846 113 110/64 11/22 0831 79.0 11/22 0831 116 108/59 11/22 0816 89.0 11/22 0816 112 120/70 11/22 0801 90.0 11/22 0801 116 122/69 11/22 0746 93.0 11/22 0746 116 129/71 11/22 0731 102.0 11/22 0731 112 144/79 Patient Weight Weight (lb): 220 Weight (oz): Weight (kg): 99.79 Physical Exam Breasts: Breasts: non-tender, soft Cardiac: normal sinus rhythm, no clinically sig murmur Lungs: clear to auscultation Neuro: Exam: alert, oriented x3, normal speech Abdomen: soft, no abnormal tenderness, no guarding, no rebound tenderness, normoactive bowel sounds Uterus: firm, involution appropriate, non-tender Fundus: below the umbilicus Lochia: moderte Lacerations: Perineal laceration(s): None High vaginal laceration: no Lower extremities: Edema: trace Result Findings/Data: Laboratory Tests: 11/23 11/23 11/22 0449 0436 0017 Chemistry Sodium (135 - 145 mEq/L) 135 Potassium (3.5 - 5.0 mEq/L) 4.1 Chloride (100 - 115 mEq/L) 101 Carbon Dioxide (22 - 31 mEq/L) 24 Anion Gap (10 - 20) 14.20 BUN (7 - 18 mg/dL) 7 Creatinine (0.5 - 1.0 mg/dL) 0.5 Glomerular Filtr Rate (>60 ml/min) 146 Glucose (65 - 110 mg/dL) 94 Uric Acid (2.6 - 6.0 mg/dL) 3.9 Calcium (8.4 - 10.2 mg/dL) 8.7 Total Bilirubin (0.2 - 1.0 mg/dL) 0.3 AST (15 - 37 units/L) 28 ALT (12 - 78 units/L) 40 Total Alk Phosphatase (46 - 116 units/L) 200 H Lactate Dehydrogenase (81 - 234 units/L) 196 Total Protein (6.3 - 8.2 gm/dL) 6.7 Albumin (3.4 - 4.8 gm/dL) 2.9 L Coagulation PT (10.4 - 12.4 secs) 11.2 PTT ([place]) (22 - 38 secs) 26.9 Hematology WBC (6.6 - 12.1 K/mm3) 16.5 H RBC (3.45 - 5.01 M/mm3) 4.31 Hgb (10.7 - 13.9 g/dL) 9.6 L 11.3 Hct (32.1 - 42.1 %) 31.5 L 35.4 MCV (84.1 - 94.8 fL) 82 L MCH (27 - 35 pg) 26.2 L MCHC (32.2 - 34.1 gm/dL) 31.9 L RDW (12.4 - 16.5 %) 14.8 Plt Count (133 - 385 K/mm3) 264 MPV (9.1 - 12.7 fl) 11.9 Neut % (Auto) (56.5 - 79.4 %) 84.3 H Lymph % (Auto) (14.3 - 34.3 %) 9.2 L Dare % (Auto) (5.1 - 10.4 %) 5.7 Eos % (Auto) (0.1 - 3.0 %) 0.2 Baso % (Auto) (0.1 - 1.0 %) 0.2 Neut # (Auto) (K/mm3) 13.9 Lymph # (Auto) (K/mm3) 1.5 Dare # (Auto) (K/mm3) 0.9 Eos # (Auto) (K/mm3) 0.03 Baso # (Auto) (K/mm3) 0.0 Immature Plt Fraction (0.0 - 10.8 %) 0.0 Serology Treponema pallidum Ab (NONREACTIVE) NONREACTIVE Hep Bs Antigen (NONREACTIVE) NONREACTIVE Hepatitis C Antibody (NONREACTIVE) NONREACTIVE Hep C Ab Signal/Cutoff (<0.80) 0.03 HIV 1 2 Antibody (NonReactive) Nonreactive 11/21 2208 Toxicology Urine Opiates Screen (NEGATIVE) NEGATIVE Ur Barbiturates, Qual (NEGATIVE) NEGATIVE Ur Phencyclidine Scrn (NEGATIVE) NEGATIVE Ur Amphetamines Screen (NEGATIVE) NEGATIVE U Benzodiazepines Scrn (NEGATIVE) NEGATIVE Urine Cocaine Screen (NEGATIVE) NEGATIVE Urine Cannabinoids (NEGATIVE) NEGATIVE Urines Urine Color (YELLOW) YELLOW Urine Appearance (CLEAR) Slightly-Cloudy Urine pH (5 - 9) 5.0 Ur Specific [place] (1.001 - 1.035) 1.012 Urine Protein (NEG) NEGATIVE Urine Glucose (UA) (NEG) NEGATIVE Urine Ketones (NEG) TRACE H Urine Blood (NEG) 2+ H Urine Nitrite (NEG) NEG Urine Bilirubin (NEG) NEGATIVE Urine Urobilinogen (NEG mg/dL) NEGATIVE Ur Leukocyte Esterase (NEG) 1+ H Urine RBC (NONE SEEN #/hpf) 0-2 Urine WBC (NONE SEEN #/hpf) 6-10 H Ur Epithelial Cells (RARE - FEW #/HPF) RARE Urine Mucus (NONE SEEN) RARE Ur Random Creatinine (mg/dL) 67.9 U Random Total Protein (mg/dL) 16.2 Protein/Creatinin Ratio (<200 mg/gcrea) 230.0 H Microbiology: Date/Time Procedure - Status Source Growth 11/21 2208 Urine Culture - RES URINE Diagnosis, Assessment Plan Diagnosis, Assessment Plan Free Text A P: 29yo now PPD #1 s/p EBL 300cc @ 39 1/7w w/ GHTN (preE panel wnl, upr /cr 0.23) in labor, now normotensive 1) GHTN: continue monitoring BP 2) 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, 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 (did not breastfeed w/ other 2 children, desires to attempt w/ this one) 3) Anticipate dispo tomorrow at 0729 RPT #:[id number] END OF REPORT [facility] 2019-11-22 16:09:00 [facility] OB Delivery Note REPORT#:[id number] REPORT STATUS: Signed DATE:11/22/19 TIME: 1609 PATIENT: OSITO JIN UNIT #: [id number] ROOM/BED: [address] : 90 AGE: 29 SEX: F ATTEND: Mei Landeros MD ADM AUTHOR: Karen Marx MD * ALL edits or amendments must be made on the electronic/computer document * OB Delivery Nursing Documentation Review Nursing data: The data set between the solid lines has been imported from nursing documentation. Any exceptions have been noted below under Provider comments. _ ROM date: ROM time: Membranes rupture method: AROM Amniotic fluid color: Bloody Amniotic fluid amount: EGA (weeks/days): 39.1 EGA at admit (weeks): EGA at delivery (weeks): 39 Steroids prior to arrival: Antibiotic prophylaxis given: [place] evaluation at delivery: Delivery date infant A: Delivery time A: Birthweight (gm) infant A: Weight (lb) A: Weight (oz) infant A: Gender A: Female 1 minute infant A: 5 minutes A: 10 minutes A: Cord pH obtained infant A: Vacuum time infant A: Vacuum # pulls infant A: Vacuum # popoffs A: __ Provider comments on imported nursing data: [] Pre-delivery GBS status: GBS status: negative Admission EGA (wks/days): 39 weeks General VS: Last Documented: Result Date Time B/P Mean 110.0 11/22 1546 B/P 149/90 11/22 1546 Pulse 92 11/22 1546 Temp 98.9 11/22 1315 Resp 18 11/22 1315 Vaginal Delivery Vaginal delivery Labor: augmented Medications/Devices used: oxytocin Vaginal delivery: spontaneous Amniotic fluid: blood Anesthesia type: epidural anesthesia Episiotomy: right mediolateral Episiotomy repair: yes Laceration repair: no Episiotomy/laceration suture: 2-0 Placenta: spontaneous Post delivery meds used: oxytocin Count: correct Mother's condition: mother stable Infant's condition: infant stable in room Lacerations: Perineal laceration(s): None High vaginal laceration: no Maneuver(s): Staff present: extra nurse for prophylactic raciel maneuver for suspected LGA Shoulder dystocia present: no Additional comments: EBL 300cc Fundus firm after delivery Blood Loss/Details Blood loss at delivery: 300 EBL (ml's): 300 at 0038 RPT #:[id number] END OF REPORT [facility] 2019-11-22 12:17:00 [facility]) OB Intrapart Prog Note REPORT#:[id number] REPORT STATUS: Signed DATE:11/22/19 TIME: 1217 PATIENT: OSITO JIN UNIT #: [id number] ROOM/BED: [address] : 90 AGE: 29 SEX: F ATTEND: Mei Landeros MD ADM AUTHOR: Karen Marx MD * ALL edits or amendments must be made on the electronic/computer document * Subjective Subjective Admission EGA (wks/days): 39 weeks Patient reports: Patient reports: No complaints Comments: Pt is comforable s/p epidural. I received this pt from Dr. Heaton. Per him, she was mistakenly placed on HPA service. Thus, I am assuming care of patient. Please see Dr. Landeros's very detailed h P. I have reviewed HPI with patient and conquer. Pt denies lof and has good fm. Pt believes her most recent usg w/ Dr. Wong upon admission estimated baby at 8.5 lbs. Pt was offerred primary c/s for macrosomia but declined and wishes to proceed w/ QUETA. Objective Nursing Documentation Review Nursing data: The data set between the solid lines has been imported from nursing documentation. Any exceptions have been noted below under Provider comments. __ ROM date: ROM time: __ Provider comments on imported nursing data: [] Objective VS/I O: Vital Signs Date Time Temp Pulse Resp B/P B/P Pulse O2 O2 Flow FiO2 Mean Ox Delivery Rate 11/22 1146 94.0 11/22 1146 96 128/71 11/22 1132 94.0 11/22 1132 102 123/75 11/22 1116 102.0 11/22 1116 108 132/82 11/22 1101 100.0 11/22 1101 111 143/71 11/22 1046 100.0 11/22 1046 117 135/78 11/22 1032 92.0 11/22 1032 109 125/70 11/22 1016 103.0 11/22 1016 111 138/81 11/22 1002 90.0 11/22 1002 108 123/70 11/22 0946 82.0 11/22 0946 114 113/63 11/22 0931 89.0 11/22 0931 112 122/68 11/22 0916 92.0 11/22 0916 108 125/73 11/22 0846 82.0 11/22 0846 113 110/64 11/22 0831 79.0 11/22 0831 116 108/59 11/22 0816 89.0 11/22 0816 112 120/70 11/22 0801 90.0 11/22 0801 116 122/69 11/22 0746 93.0 11/22 0746 116 129/71 11/22 0731 102.0 11/22 0731 112 144/79 11/22 0716 91.0 11/22 0716 116 130/70 11/22 0703 97.0 11/22 0703 108 138/72 11/22 0701 99.1 18 11/22 0646 89.0 11/22 0646 109 124/66 11/22 0631 83.0 11/22 0631 102 119/62 11/22 0617 90.0 11/22 0617 105 125/69 11/22 0601 88.0 11/22 0601 103 123/67 11/22 0546 96.0 11/22 0546 109 137/70 11/22 0531 97.0 11/22 0531 103 143/68 11/22 0516 98.0 11/22 0516 95 145/75 11/22 0501 73.0 11/22 0501 105 102/56 11/22 0447 70.0 11/22 0447 98 111/54 11/22 0431 82.0 11/22 0431 100 116/55 11/22 0417 86.0 11/22 0417 94 128/60 11/22 0401 87.0 11/22 0401 104 124/62 11/22 0347 95.0 11/22 0347 107 133/69 11/22 0332 94.0 11/22 0332 99 133/71 11/22 0317 94.0 11/22 0317 89 123/76 11/22 0301 106.0 11/22 0301 90 137/85 11/22 0246 99.0 11/22 0246 102 123/84 11/22 0231 105.0 11/22 0231 99 130/84 11/22 0217 80.0 11/22 0217 112 126/56 11/22 0201 86.0 11/22 0201 101 121/74 11/22 0147 99.0 11/22 0147 103 126/88 11/22 0126 95.0 11/22 0126 113 129/73 11/22 0121 93.0 11/22 0121 114 125/73 11/22 0117 94.0 11/22 0117 112 131/71 11/22 0111 103.0 11/22 0111 111 148/73 11/22 0105 113.0 11/22 0105 115 156/83 Vital Signs Date Temp Pulse Resp B/P B/P Mean Pulse Ox FiO2 11/21-11/22 98.4-99.1 89-121 18 102-169/54-101 70.0-131.0 Patient Weight Weight (lb): 220 Weight (oz): Weight (kg): 99.79 Notes: AROM minimal blood tinged fluid. ROP. Cervical/ exam: Dilatation (cm): 8 Effacement (%): 90 station: - 2 presentation: cephalic Est. wt (grams) 4500 Est. wt (lbs) 9 Est. wt (oz) 6 Pelvis exam: Clinically adequate for this fetus: yes Current oxytocin: Indication: none FHR Evaluation FHR comment: 140's reactive; no decels; good variability Result Findings/Data: Laboratory Tests: 11/22 11/21 0017 9 Chemistry Sodium (135 - 145 mEq/L) 135 Potassium (3.5 - 5.0 mEq/L) 4.1 Chloride (100 - 115 mEq/L) 101 Carbon Dioxide (22 - 31 mEq/L) 24 Anion Gap (10 - 20) 14.20 BUN (7 - 18 mg/dL) 7 Creatinine (0.5 - 1.0 mg/dL) 0.5 Glomerular Filtr Rate (>60 ml/min) 146 Glucose (65 - 110 mg/dL) 94 Uric Acid (2.6 - 6.0 mg/dL) 3.9 Calcium (8.4 - 10.2 mg/dL) 8.7 Total Bilirubin (0.2 - 1.0 mg/dL) 0.3 AST (15 - 37 units/L) 28 ALT (12 - 78 units/L) 40 Total Alk Phosphatase (46 - 116 units/L) 200 H Lactate Dehydrogenase (81 - 234 units/L) 196 Total Protein (6.3 - 8.2 gm/dL) 6.7 Albumin (3.4 - 4.8 gm/dL) 2.9 L Hematology WBC (6.6 - 12.1 K/mm3) 16.5 H RBC (3.45 - 5.01 M/mm3) 4.31 Hgb (10.7 - 13.9 g/dL) 11.3 Hct (32.1 - 42.1 %) 35.4 MCV (84.1 - 94.8 fL) 82 L MCH (27 - 35 pg) 26.2 L MCHC (32.2 - 34.1 gm/dL) 31.9 L RDW (12.4 - 16.5 %) 14.8 Plt Count (133 - 385 K/mm3) 264 MPV (9.1 - 12.7 fl) 11.9 Neut % (Auto) (56.5 - 79.4 %) 84.3 H Lymph % (Auto) (14.3 - 34.3 %) 9.2 L Dare % (Auto) (5.1 - 10.4 %) 5.7 Eos % (Auto) (0.1 - 3.0 %) 0.2 Baso % (Auto) (0.1 - 1.0 %) 0.2 Neut # (Auto) (K/mm3) 13.9 Lymph # (Auto) (K/mm3) 1.5 Dare # (Auto) (K/mm3) 0.9 Eos # (Auto) (K/mm3) 0.03 Baso # (Auto) (K/mm3) 0.0 Immature Plt Fraction (0.0 - 10.8 %) 0.0 Serology Treponema pallidum Ab (NONREACTIVE) NONREACTIVE Hep Bs Antigen (NONREACTIVE) NONREACTIVE Hepatitis C Antibody (NONREACTIVE) NONREACTIVE Hep C Ab Signal/Cutoff (<0.80) 0.03 Toxicology Urine Opiates Screen (NEGATIVE) NEGATIVE Ur Barbiturates, Qual (NEGATIVE) NEGATIVE Ur Phencyclidine Scrn (NEGATIVE) NEGATIVE Ur Amphetamines Screen (NEGATIVE) NEGATIVE U Benzodiazepines Scrn (NEGATIVE) NEGATIVE Urine Cocaine Screen (NEGATIVE) NEGATIVE Urine Cannabinoids (NEGATIVE) NEGATIVE Urines Urine Color (YELLOW) YELLOW Urine Appearance (CLEAR) Slightly-Cloudy Urine pH (5 - 9) 5.0 Ur Specific [place] (1.001 - 1.035) 1.012 Urine Protein (NEG) NEGATIVE Urine Glucose (UA) (NEG) NEGATIVE Urine Ketones (NEG) TRACE H Urine Blood (NEG) 2+ H Urine Nitrite (NEG) NEG Urine Bilirubin (NEG) NEGATIVE Urine Urobilinogen (NEG mg/dL) NEGATIVE Ur Leukocyte Esterase (NEG) 1+ H Urine RBC (NONE SEEN #/hpf) 0-2 Urine WBC (NONE SEEN #/hpf) 6-10 H Ur Epithelial Cells (RARE - FEW #/HPF) RARE Urine Mucus (NONE SEEN) RARE Ur Random Creatinine (mg/dL) 67.9 U Random Total Protein (mg/dL) 16.2 Protein/Creatinin Ratio (<200 mg/gcrea) 230.0 H Microbiology: Date/Time Procedure - Status Source Growth 11/21 2208 Urine Culture - RES URINE per Dr. Paredes (RN called her) pt GBS is negative Diagnosis, Assessment Plan Free Text A P: A1@39.2 wks in active labor 1)LGA: Documented serial usgs support efw>95-99% w/ current efw ranging from 9.2 to 10.5lbs. Pt was previously offered an elective c/s and declined. Although I informed her that my assessment revealed an adequate pelvis, I recounseled pt extensively on the risk of SD including but not limited to: broken clavicle; nerve plexus injuries, paralysis of affected arm; anoxic brain injury; and fatality. Pt verbalized understanding and I gave her time to discuss w/ . She decided to proceed w/ QUETA. Thus she underwent AROM w/ minimal fluid return. Will Augment w/ pitocin if unchanged in 1 hour. RN will have help for SD precautions. at 1340 RPT #:[id number] END OF REPORT [facility] 2019-11-22 02:12:00 [id number] [facility] [address] [place], [place] [address] PATIENT NAME: OSITO JIN ADMIT DATE: 11/22/19 ACCOUNT NO: [id number] ROOM NO: .[facility] AGE: 29 SEX: F ADMITTING PHYSICIAN: Mei Landeros MD ATTENDING PHYSICIAN: Mei Landeros MD ADMISSION DATE: 11/22/2019 ADMISSION HISTORY AND PHYSICAL For admission on 11/21/2019 by Mei Landeros MD, triage hospitalist education administrative assistant for [facility]. The patient admitted per request of Dr. Delvalle to [facility] Service. HISTORY OF PRESENT ILLNESS: This patient is a 29-year-old G4, P2-0-1-2, with last menstrual period 02/20/2019, and estimated date of confinement 11/27/2019. She presented at 39-1/7th weeks complaining of contractions every 5 minutes. She states the contractions had now increased in force and frequency with 8/10 on the pain scale and closer to 4 minutes in frequency. She spoke to her usual OB, Dr. Banda and was told to proceed to the [facility], though Dr. Banda is not on staff there. She states that on scan in Dr. Banda's office earlier on 11/11/2019 estimated weight was greater than 9 pounds. She stated her Dr. Banda spoke to Dr. Delvalle and Dr. Delvalle stated she should come to [facility]. However, Dr. Banda was not able to arrange appointment with Dr. Delvalle and the patient. I had never seen her before, so when she presented to the OB ED, she was felt to be a no-doc patient. She denied vaginal bleeding or leakage of fluid. She did report a bloody show earlier in the day and she reported good movement. She denied headache, vision changes, or other symptoms of preeclampsia, though her pressures were quite elevated on the first 1 or 2 after arrival. She denied fever, chills, nausea, vomiting, diarrhea, or constipation or dysuria. Her blood pressures as stated above were in the 160s to 170s systolic range. She denied history of preeclampsia in prior pregnancies or in the current . She denied history of chronic hypertension. She denied history of diabetes before or during the . She has felt that the pressures were elevated at the time of her arrival because she was racing to come to the [facility]. Her stayed behind in [place] with her other two children and also because the contractions were quite uncomfortable. Urine, no evidence of proteinuria, and soon after arrival, her blood pressures were all in the 120 to 130s range over 70s to 80s. Her care has been with Dr. Banda beginning at approximately 4 weeks' gestation. The has been remarkable for size greater than dates by approximately 2 weeks most of the , otherwise no complications and all labs and ultrasounds normal until today. PAST MEDICAL HISTORY: Negative. PAST SURGICAL HISTORY: Negative. PATIENT NAME: OSITO JIN ALLERGIES: NO KNOWN DRUG ALLERGIES. MEDICATIONS: vitamin. OBSTETRICAL HISTORY: In 2007, male infant weighing 4 pounds 15 ounces, delivered. The patient is adamant that that was the correct way and also that he was full term. She reported severe nausea and vomiting in the first trimester, but denied being told that fetus was IUGR earlier in the . She states he went home with her on day #2. In 2013, full term vaginal delivery of female weighing 7 pounds 2 ounces, no complications in that . In 2019, spontaneous in the first trimester, not requiring D and C. GYNECOLOGIC HISTORY: Menarche at age 13 with regular monthly cycles lasting 4 days, moderate in amount with minimal cramping. The patient denies prior history of STDs. Reports all Pap smears normal. SOCIAL HISTORY: The patient denies tobacco or illicit drug use. She reports occasional prepregnancy alcohol use. She lives with her spouse, a 31-year-old healthy male, and her 2 children. She does not work outside the home. FAMILY HISTORY: Both parents with hypertension also maternal grandmother with hypertension. Maternal grandfather with heart disease. Paternal grandmother with heart disease and she had hypertension. Paternal grandfather with stomach cancer. The patient reports her four half-brothers all living and healthy and her 2 children. The patient denies history of mental retardation or defects in her family or her spouse's family. REVIEW OF SYSTEMS: A 10-point review of systems is negative except as stated above. PHYSICAL EXAMINATION: GENERAL: The patient is a well-nourished, well-developed female in no acute distress, lying on triage stretcher in OB ED. VITAL SIGNS: Height 5 feet 5 inches, weight prior to the 220 pounds and at most recent visit to clinic 240 pounds. As stated above, initial blood pressures elevated at 171/101, then 169/88, then 141/80, and the remainder of the pressures with systolics in the 120 to 130s range, pulse in the 100 range, temperature 97, and respirations 20. HEAD AND NECK: Within normal limits without lymphadenopathy or thyromegaly. CHEST: Clear to auscultation bilaterally. HEART: Slightly tachycardic rate with regular rhythm. BREASTS: Deferred. ABDOMEN: Soft, nontender, gravid with a fundal height of 41 cm. PELVIS: On initial pelvic exam, cervix was 4 cm dilated, 80% effaced, and -2 station, cephalic, and intact. On repeat exam, she is 5 cm dilated, 80% effaced. Otherwise, no change. EXTREMITIES: Showed trace edema. Bilateral patellar reflexes, 2+. NEUROLOGIC: Nonfocal. The patient is awake, alert, and oriented x3. LABORATORY DATA: Urinalysis showed trace ketones, 2+ blood, 1+ leukocytes, 0 to 2 rbc's, 6 to 10 wbc's, rare epithelial cells, with protein creatinine ratio of 230. Urine drug screen all negative. Admission labs results not yet available. NST is category 1 with baseline heart tones in the 130s to 140s range. PATIENT NAME: OSITO JIN Multiple accelerations 15 x 15, no decelerations, and contractions every [address] Delvalle reported on her note revealed single intrauterine , cephalic presentation, anterior placenta with ALOK reduced and a biophysical profile of 8/8. Estimated weight 4216 grams, in the 95th percentile. Dr. Delvalle requested the patient be admitted to the [facility] Service. ASSESSMENT: Thus, on assessment, this is a 29-year-old G4, P2-0-1-2, at 39-1/7th weeks with active labor and macrosomia by ultrasound. She is now admitted for delivery. We will allow the patient to labor on her own mechanism for now. Dictated By: Mei Landeros MD WT: HP:F.TYLER/JANN/NTS Conf#: [id number]/DID#: [id number] Authenticated by Mei Landeros MD On 11/26/2019 02:53:14 PM at 1453 PATIENT NAME: OSITO JIN [facility] 2019-11-21 23:48:00 [facility] ([facility]) MF Consultation Note REPORT#:[id number] REPORT STATUS: Signed DATE:11/21/19 TIME: 2347 PATIENT: OSITO JIN UNIT #: [id number] ROOM/BED: : 90 AGE: 29 SEX: F ATTEND: Mei Landeros MD ADM DT: AUTHOR: Sybil Delvalle MD * ALL edits or amendments must be made on the electronic/computer document * Objective Results Radiology data: WATKINS VERTEX ANTERIOR PLACENTA ALOK REDUCED s/d 2.5 bpp 8/8 efw 4216 gsm 95 % indication active labor macrosomia at 2351 RPT #:[id number] END OF REPORT [facility] 2019-11-21 23:17:00 [facility]) Clinical Note REPORT#:[id number] REPORT STATUS: Signed DATE:11/21/19 TIME: 2316 PATIENT: OSITO JIN UNIT #: [id number] ROOM/BED: 004-A : 90 AGE: 29 SEX: F ATTEND: Mei Landeros MD ADM AUTHOR: Mei Landeros MD * ALL edits or amendments must be made on the electronic/computer document * Clinical Note Note: [facility]/Triage Hospitalist (ANA ROSA) notified of pt arrival in [facility] @ 2208, eval begun at 2230 29yo @ 39 1/7w, active labor, borderline macrosomia by US (Dr Delvalle), elevated BPs at arrival-no evid PreE on W/U SVE 4/80>5/80 Cat 1 strip/ctx q4-5min U/S EFW 8 11/07-9# known GBS neg Pt counseled by Dr Mook peters risks macrosomia-declines proceed w elective 1o C/S w /o QUETA -admit to [facility] service, usual OB spoke to Dr Delvalle earlier Dictated admission H P to follow /dsd at 0035 RPT #:[id number] END OF REPORT [facility] 2019-11-21 23:17:00 [facility] ([facility]) Clinical Note REPORT#:[id number] REPORT STATUS: Signed DATE:11/21/19 TIME: 2316 PATIENT: OSITO JIN UNIT #: [id number] ROOM/BED: [address] : 90 AGE: 29 SEX: F ATTEND: Mei Landeros MD ADM AUTHOR: Mei Landeros MD * ALL edits or amendments must be made on the electronic/computer document * See Addendum Clinical Note Note: [facility]/Triage Hospitalist (ANA ROSA) notified of pt arrival in [facility] @ 2208, eval begun at 2230 29yo @ 39 1/7w, active labor, borderline macrosomia by US (Dr Delvalle), elevated BPs at arrival-no evid PreE on W/U SVE 4/80>5/80 Cat 1 strip/ctx q4-5min U/S EFW 8 1-9# known GBS neg Pt counseled by Dr Mook re risks macrosomia-declines proceed w elective 1o C/S w /o QUETA -admit to [facility]PA service, usual OB spoke to Dr Delvalle earlier Dictated admission H P to follow /dsd at 0035 Addendum 1: 11/22/19 0213 by Mei Landeros MD H P dictated/dsd at 0213 RPT #:[id number] END OF REPORT [facility]"
--- NOTE | 2024-08-28 00:33 | RAD REPORT ---
Clinical Indication: Bed Name: 6; ABD PAIN Comparison: None TECHNIQUE: Grayscale and limited color sonographic evaluation of the right upper quadrant of the abdomen and gal lbladder region was performed with standard technique. FINDINGS: BILE DUCTS: The intrahepatic and extrahepatic bile ducts are not dilated with the common bile duct measuring 3. 4 mm. The distal common bile duct is not well seen. GALLBLADDER: Small shadowing echogenic foci are noted within the dependent neck, consistent with gallstones. No pe richolecystic fluid is noted. The gallbladder wall measures 1.9 mm in thickness. No sonographic Schwab sign was elicited during this exam.. ASCITES: There is no right upper quadrant abdominal ascites. IMPRESSION: 1. Cholelithiasis without sonographic evidence of acute cholecystitis. Electronically signed by: Jesus De Luna MD 08/28/2024 12:25 AM CDT RP Due to temporary technical issues with the PACS/[employer] scribe reporting system, reports are being signed by the in-house radiologist without review as a courtesy to ensure prompt reporting the interpreting radiologist is fully responsible for the content of the report. Transcribed Date/Time: 08/28/2024 12:33 AM
[2024-08-28] MEDS ORDERED: NA CHLORIDE 0.9% 1,000 ML ONE (00:57)
[2024-08-28 01:24] LABS: Specific Gravity 1.027 (1.005-1.030)
[2024-08-28 01:27] LABS: Absolute Basophils 0.2 K/uL (0-0.5); Absolute Lymphocytes (CBC) 0.6 K/uL (0.7-4.9); Absolute Monocytes 0.7 K/uL (0.1-1.3); Absolute Neutrophil 14.3 K/uL (1.8-8.0); Basophils % 1.2 % (0-1.3); Eosinophils % 0.2 % (0-4.4); Hematocrit 42.3 % (36.0-45.0); Hemoglobin 13.6 g/dL (12.0-15.0); Lymphocytes % 4.1 % (15.3-44.8); MCH 25.5 pg (27.0-35.0); MCHC 32.1 g/dL (32.0-36.0); MCV 79.4 fL (80-100); MPV 9.8 fL (7.6-11.3); Monocytes % 4.4 % (3.3-12.3); Neutrophils % 90.1 % (41.7-73.7); Platelets 252 thou/uL (152-406); RBC Red Blood Cell Count 5.34 M/uL (3.86-4.86); Red Cell Distribution Width 16.4 % (12.1-15.2)
[2024-08-28 01:27] LABS: Specific Gravity 1.027 (1.005-1.030); Sqamous Epithelial <5 /HPF (None Seen); Urine Bacteria <20 /HPF (<20); Urine Bilirubin NEGATIVE (Negative); Urine Blood Negative (Negative); Urine Clarity Extremely Turbid (Clear); Urine Color Yellow (Yellow); Urine Culture Reflex Order NOT NEEDED; Urine Glucose NEGATIVE (Negative); Urine Ketones 2+ (Negative); Urine Microscopic Reflex YN ORDER UMIC; Urine Mucus 2+ /HPF (None Seen); Urine Nitrite NEGATIVE (Negative); Urine Protein 1+ (Negative); Urine RBC <5 /HPF (None Seen); Urine Urobilinogen 1+ (Normal); Urine WBC <5 /HPF (<5); Urine pH 5.5 (5.0-7.0)
[2024-08-28 01:41] LABS: Albumin/Globulin Ratio 0.9 (1.1-1.8); Anion Gap 9.6 mEq/L (5.0-15.0); Bilirubin Total 0.5 mg/dL (0.2-1.0); Globulin 4.5 g/dL (2.3-3.5); Potassium 3.6 mEq/L (3.5-5.1); Protein, Total 8.5 g/dL (6.4-8.2)
[2024-08-28 02:30] LABS: Band Neutrophils 6 % (0-1); Differential Total Cells Count 100; Lymphocytes 8 % (15-42); Monocytes 1 % (0-10); Reactive Lymphocytes 1 %; Segmented Neutrophils 84 % (40-80)
[2024-08-28 02:31] LABS: Blood Morphology Comment NOT SEEN (NOT SEEN); Platelet Estimate ADEQ
--- NOTE | 2024-08-28 02:34 | RAD REPORT ---
EXAM DESCRIPTION: CT ABDOMEN PELVIS WITHOUT IV CONTRAST 08/28/2024 2:10 AM CDT CLINICAL HISTORY: 34 years, Female, Abdominal pain. COMPARISON: US Abdomen 08/27/2024. PROCEDURE: Noncontrast images of the abdomen and pelvis were performed from the lung bases to the ischial tubero sities. In addition multiplanar reformats in the coronal and sagittal plane were obtained and reviewed. An individualized dose optimization technique, Automated Exposure Control, was utilized for the perfo rmed procedure. FINDINGS: The lack of IV contrast limits evaluation of solid organs, subtle lesions cannot be exclude d. Lung bases: The lung bases demonstrate to be clear. Liver: Grossly the unopacified liver demonstrates to be normal, no focal lesions are identified. Gallbladder: Grossly the unopacified gallbladder demonstrate to be normal. Adrenal glands: Grossly the unopacified adrenal glands demonstrate to be normal. Pancreas: Grossly the unopacified pancreas demonstrate to be normal Spleen: The spleen demonstrate to be normal. Kidneys: Grossly the unopacified kidneys demonstrate to be within normal limits. There is no eviden ce for nephrolithiasis and/or hydronephrosis. GI: Grossly the unopacified stomach, small bowel and large bowel demonstrate to be within normal limi ts. No evidence for bowel dilatation and/or free air. The appendix is normal. The left-sided colon demonstrate to be decompressed with no gross abnormalities. : The urinary bladder demonstrate to be unremarkable. Genitalia: The uterus demonstrate to be within normal limits. There are normal adnexal structures. Abdominal aorta: The aorta demonstrate demonstrate to be within normal limits. Retroperitoneum: There is no retroperitoneal lymphadenopathy. There is no evidence for ascites and/or abnormal fluid collections. Bones: The bony structures demonstrate to be within normal limits. No evidence for compression deform ity and/or significant skeletal lesions. Soft tissues: The rest of the soft tissue and bony structures are within normal limits. IMPRESSION: No evidence for nephrolithiasis and/or hydronephrosis. Unremarkable CT scan of the abdomen and pelvis without contrast. Electronically signed by: Jhonny Camargo MD 08/28/2024 02:29 AM CDT Due to temporary technical issues with the PACS/[employer] reporting system, reports are being hubert d by the in-house radiologist without review as a courtesy to ensure prompt reporting the interpreting radiologist is fully responsible for the content of the report. Transcribed Date/Time: 08/28/2024 2:33 AM
--- NOTE | 2024-08-28 02:55 | EDPHYS ---
Physician Documentation [facility] Name: Arelis Mendoza Age: 34 yrs Sex: Female : 1990 Arrival Date: 08/27/2024 Time: 22:40 Bed 6 Private MD: ED Physician Rio Kulkarni HPI: 08/27 23:16 This 34 yrs old Female presents to ER via Ambulatory with complaints of sp4 Abdominal Pain, Shortness Of Breath. 08/28 03:11 -year-old female presents with acute episode of epigastric abdominal pain associated sp4 with vomiting starting 2 hours prior to arrival. Patient reported 6 episodes of vomiting. Also reported episode of diaphoresis. History of 6 prior pregnancies, -0-1-5. NO History of prior abdominal surgery. 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 - Infectious Disease History:: Denies. - Social history:: Smoking status: Patient denies any tobacco usage or history of. Patient/guardian denies using alcohol, street drugs. - Family history:: not pertinent. ROS: 08/28 03:11 Constitutional: Negative for fever, chills, and weight loss, positive epigastric sp4 abdominal pain, positive vomiting , positive diaphoresis All other systems are negative, Exam: 03:11 Constitutional: This is a well developed, well nourished patient who is awake, alert, sp4 and in no acute distress. Head/Face: Normocephalic, atraumatic. Eyes: Pupils equal round and reactive to light, extra-ocular motions intact. Lids and lashes normal. Conjunctiva and sclera are not injected. Cornea within normal limits. Periorbital areas with no swelling, redness, or edema. ENT: Nares patent. No nasal discharge, no septal abnormalities noted. Tympanic membranes are normal and external auditory canals are clear. Oropharynx with no redness, swelling, or masses, exudates, or evidence of obstruction, uvula midline. Mucous membranes moist. Neck: Trachea midline, no thyromegaly or masses palpated, and no cervical lymphadenopathy. Supple, full range of motion without nuchal rigidity, or vertebral point tenderness. Chest/axilla: Normal chest wall appearance and motion. Nontender with no deformity. No lesions are appreciated. Cardiovascular: Regular rate and rhythm with a normal S1 and S2. No gallops, murmurs, or rubs. Normal PMI, no JVD. No pulse deficits. Respiratory: Lungs have equal breath sounds bilaterally, clear to auscultation and percussion. No rales, rhonchi or wheezes noted. No increased work of breathing, no retractions or nasal flaring. Abdomen/GI: Soft, with normal bowel sounds. No distension or tympany. No guarding or rebound. No evidence of tenderness throughout. Back: No spinal tenderness. No costovertebral tenderness. Skin: Warm, dry with normal turgor. Normal color with no rashes, no lesions, and no evidence of cellulitis. MS/ Extremity: Pulses equal, no cyanosis. Neurovascular intact. Full, normal range of motion. Neuro: Awake and alert, GCS 15, oriented to person, place, time, and situation. Cranial nerves II-XII grossly intact. Motor strength 5/5 in all extremities. Sensory grossly intact. Psych: Awake, alert, with orientation to person, place and time. Behavior, mood, and affect are within normal limits Vital Signs: 08/27 23:11 BP 131 / 89; Pulse 95; Resp 17 S; Temp 97.6(O); Pulse Ox 100% on R/A; Weight 90.72 kg lg3 (R); Height 5 ft. 5 in. (R); Pain 07/16; 08/28 00:00 BP 137 / 81; Pulse 93; Resp 18; Pulse Ox 98% ; cp4 01:20 BP 134 / 84; Pulse 98; Resp 18; Pulse Ox 100% ; cp4 03:11 BP 130 / 85; Pulse 91; Resp 18; Pulse Ox 100% ; cp4 08/27 23:11 Body Mass Index 33.28 (90.72 kg, 165.1 cm) 3 08/27 23:11 Pain Scale: Adult lg3 [place] Coma Score: 03:11 Eye Response: spontaneous(4). Motor Response: obeys commands(6). Verbal Response: sp4 oriented(5). Total: 15. MDM: 08/27 23:01 Medical Screening Exam initiated sp4 08/28 02:56 ED course: Clinical Indication: Bed Name: 6; ABD PAIN Comparison: None TECHNIQUE: sp4 Grayscale and limited color sonographic evaluation of the right upper quadrant of the abdomen and gallbladder region was performed with standard technique. FINDINGS: BILE DUCTS: The intrahepatic and extrahepatic bile ducts are not dilated with the common bile duct measuring 3.4 mm. The distal common bile duct is not well seen. GALLBLADDER: Small shadowing echogenic foci are noted within the dependent neck, consistent with gallstones. No pericholecystic fluid is noted. The gallbladder wall measures 1.9 mm in thickness. No sonographic Schwab sign was elicited during this exam.. ASCITES: There is no right upper quadrant abdominal ascites. IMPRESSION: 1. Cholelithiasis without sonographic evidence of acute cholecystitis.. ED course: EXAM DESCRIPTION: CTABDOMEN PELVIS WITHOUT IV CONTRAST 08/28/2024 2:10 AM CDT CLINICAL HISTORY: 34 years, Female, Abdominal pain. COMPARISON: US Abdomen 08/27/2024. PROCEDURE: Noncontrast images of the abdomen and pelvis were performed from the lung bases to the ischial tuberosities. In addition multiplanar reformats in the coronal and sagittal plane were obtained and reviewed. An individualized dose optimization technique, Automated Exposure Control, was utilized for the performed procedure. FINDINGS: The lack of IV contrast limits evaluation of solid organs, subtle lesions cannot be excluded. Lung bases: The lung bases demonstrate to be clear. Liver: Grossly the unopacified liver demonstrates to be normal, no focal lesions are identified. Gallbladder: Grossly the unopacified gallbladder demonstrate to be normal. Adrenal glands: Grossly the unopacified adrenal glands demonstrate to be normal. Pancreas: Grossly the unopacified pancreas demonstrate to be normal Spleen: The spleen demonstrate to be normal. Kidneys: Grossly the unopacified kidneys demonstrate to be within normal limits. There is no evidence for nephrolithiasis and/or hydronephrosis. GI: Grossly the unopacified stomach, small bowel and large bowel demonstrate to be within normal limits. No evidence for bowel dilatation and/or free air. The appendix is normal. The left-sided colon demonstrate to be decompressed with no gross abnormalities. : The urinary bladder demonstrate to be unremarkable. Genitalia: The uterus demonstrate to be within normal limits. There are normal adnexal structures. Abdominal aorta: The aorta demonstrate demonstrate to be within normal limits. Retroperitoneum:There is no retroperitoneal lymphadenopathy. There is no evidence for ascites and/or abnormal fluid collections. Bones: The bony structures demonstrate to be within normal limits. No evidence for compression deformity and/or significant skeletal lesions. Soft tissues: The rest of the soft tissue and bony structures are within normal limits. IMPRESSION: No evidence for nephrolithiasis and/or hydronephrosis. Unremarkable CT scan of the abdomen and pelvis without contrast. . 03:11 Differential diagnosis: Anemia asthma, Bronchitis pneumonia. Data reviewed: vital sp4 signs, nurses notes, lab test result(s), radiologic studies, CT scan, ultrasound. ED course: Ultrasound discovered cholelithiasis without cholecystitis. At this time patient is stable for discharge home.. 08/27 23:01 Order name: CBC with Diff; Complete Time: 02:44 sp4 08/27 23:01 Order name: CMP; Complete Time: 02:44 sp4 08/27 23:01 Order name: Lipase; Complete Time: 02:44 sp4 08/27 23:01 Order name: Test, Urine; Complete Time: 02:44 sp4 08/27 23:01 Order name: Urinalysis w/ reflexes; Complete Time: 02:44 sp4 08/28 01:36 Order name: Manual Differential; Complete Time: 02:44 EDMS 08/27 23:55 Order name: US Abdomen Limited; Complete Time: 02:44 sp4 08/28 01:37 Order name: Abdomen ; Complete Time: 02:44 EDMS 08/27 23:01 Order name: IV Saline Lock; Complete Time: 01:03 sp4 08/27 23:01 Order name: Labs collected and sent; Complete Time: 01:03 sp4 Administered Medications: 01:03 Drug: NS 0.9% IV 1000 ml IV at 1000 ml once; to be given as a bolus over 60 minutes cp4 Route: IV; Rate: 1000 ml; Site: right hand; 03:12 Follow up: Response: No adverse reaction; IV Status: Completed infusion cp4 Disposition Summary: 08/28/24 02:54 Discharge Ordered Problem: new sp4 Symptoms: have improved sp4 Condition: Stable sp4 Diagnosis - Other cholelithiasis without obstruction sp4 - Acute biliary colic, cholelithiasis without cholecystitis sp4 Followup: sp4 - With: Parth Arrington MD - When: 7 - 10 days - Reason: Recheck today's complaints Discharge Instructions: - Discharge Summary Sheet sp4 - Cholelithiasis sp4 Forms: - Patient Portal Instructions sp4 Prescriptions: - ondansetron 8 mg Oral Tablet,disintegrating - take 1 tablet ORAL route every 8 hours PRN nausea; 30 tablet; Refills: 0, sp4 Product Selection Permitted Signatures: Dispatcher [employer] EDMS Clarita Segal RN RN lg3 Rio Kulkarni MD MD sp4 Joan Vieira 4 Corrections: (The following items were deleted from the chart) 08/27 23:01 23:01 CBC+H.LAB.BRZ ordered. EDMS EDMS 23: 23:01 COMPREHENSIVE METABOLIC PANEL+C.LAB.BRZ ordered. EDMS EDMS 23: 23:01 LIPASE+C.LAB.BRZ ordered. EDMS EDMS 23: 23:01 Test, Urine+UC.LAB.BRZ ordered. EDMS EDMS 23: 23:01 Urinalysis+U.LAB.BRZ ordered. EDMS EDMS 08/28 01:37 08/27 23:55 Abdomen Pelvis W Con+CT.RAD.BRZ ordered. EDMS EDMS
--- NOTE | 2024-08-28 02:55 | ER ---
Nurse's Notes [facility] Name: Arelis Mendoza Age: 34 yrs Sex: Female : 1990 Arrival Date: 08/27/2024 Time: 22:40 Bed 6 Private MD: Diagnosis: Other cholelithiasis without obstruction;Acute biliary colic, cholelithiasis without cholecystitis Presentation: 08/27 23:11 Chief complaint: Patient states: upper abdominal/ epigastric pain, nausea and sweating lg3 X1 hr. Coronavirus screen: Client denies travel out of the [place] in the last 14 days. At this time, the client does not indicate any symptoms associated with coronavirus-19. Ebola Screen: No symptoms or risks identified at this time. Initial Sepsis Screen: Does the patient meet any 2 criteria? No. Patient's initial sepsis screen is negative. Does the patient have a suspected source of infection? No. Patient's initial sepsis screen is negative. Risk Assessment: Do you want to hurt yourself or someone else? Patient reports no desire to harm self or others. Onset of symptoms was August 27, 2024. 23:11 Method Of Arrival: Ambulatory lg3 23:11 Acuity: TONO 3 lg3 Triage Assessment: 23:13 General: Appears in no apparent distress. uncomfortable, Behavior is calm, cooperative. lg3 Pain: Complains of pain in epigastric area, right upper quadrant and left upper quadrant Pain does not radiate. EENT: No deficits noted. No signs and/or symptoms were reported regarding the EENT system. Neuro: No deficits noted. [place]ong Agitation-Sedation Scale (RASS): 0 - Alert and Calm Level of Consciousness is awake, alert, obeys commands, Oriented to person, place, time, situation. Cardiovascular: No deficits noted. Denies chest pain, shortness of breath, Capillary refill < 3 seconds Clubbing of nail beds is absent JVD is absent Patient's skin is warm and dry. Respiratory: No deficits noted. Airway is patent Respiratory effort is even, unlabored, Respiratory pattern is regular, symmetrical. GI: Abdomen is round non-distended, Reports upper abdominal pain, epigastric pain, nausea. : No deficits noted. No signs and/or symptoms were reported regarding the genitourinary system. Derm: No deficits noted. No signs and/or symptoms reported regarding the dermatologic system. Skin is intact, is healthy with good turgor, Skin is dry, Skin is normal, Skin temperature is warm. Musculoskeletal: No deficits noted. No signs and/or symptoms reported regarding the musculoskeletal system. Circulation, motion, and sensation intact. Range of motion: intact in all extremities. 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 - Infectious Disease History:: Denies. - Social history:: Smoking status: Patient denies any tobacco usage or history of. Patient/guardian denies using alcohol, street drugs. - Family history:: not pertinent. Screenin/23 00:47 [facility] ED Fall Risk Assessment (Adult) History of falling in the last 3 months, cp4 including since admission No falls in past 3 months (0 pts) Confusion or Disorientation No (0 pts) Intoxicated or Sedated No (0 pts) Impaired Gait No (0 pts) Mobility Assist Device Used No (0 pt) Altered Elimination No (0 pt) Score/Fall Risk Level 0 - 2 = Low Risk Oriented to surroundings, Maintained a safe environment, Assessed \T\ reinforced patient's understanding of fall precautions, Hourly rounding (assess needs \T\ fall precautionary measures) done. Abuse screen: Denies threats or abuse. Nutritional screening: No deficits noted. Tuberculosis screening: No symptoms or risk factors identified. Assessment: 00:47 General: Appears in no apparent distress. comfortable, Behavior is calm, cooperative, cp4 appropriate for age. Pain: Complains of pain in abdomen and left upper quadrant and right upper quadrant and epigastric area Pain does not radiate. Pain currently is 4 out of 10 on a pain scale. Neuro: Level of Consciousness is awake, alert, obeys commands, Oriented to person, place, time, situation. Cardiovascular: Patient's skin is warm and dry. Respiratory: Airway is patent Respiratory effort is even, unlabored. GI: Bowel sounds present X 4 quads. Abd is soft and non tender X 4 quads. : No signs and/or symptoms were reported regarding the genitourinary system. EENT: No signs and/or symptoms were reported regarding the EENT system. Derm: No signs and/or symptoms reported regarding the dermatologic system. Musculoskeletal: No signs and/or symptoms reported regarding the musculoskeletal system. 01:30 Reassessment: Patient appears in no apparent distress at this time. Patient and/or cp4 family updated on plan of care and expected duration. Pain level reassessed. Patient is alert, oriented x 3, equal unlabored respirations, skin warm/dry/pink. 02:30 Reassessment: Patient appears in no apparent distress at this time. Patient and/or cp4 family updated on plan of care and expected duration. Pain level reassessed. Patient is alert, oriented x 3, equal unlabored respirations, skin warm/dry/pink. Vital Signs: 08/27 23:11 BP 131 / 89; Pulse 95; Resp 17 S; Temp 97.6(O); Pulse Ox 100% on R/A; Weight 90.72 kg lg3 (R); Height 5 ft. 5 in. (R); Pain 9/10; 08/28 00:00 BP 137 / 81; Pulse 93; Resp 18; Pulse Ox 98% ; cp4 01:20 BP 134 / 84; Pulse 98; Resp 18; Pulse Ox 100% ; cp4 03:11 BP 130 / 85; Pulse 91; Resp 18; Pulse Ox 100% ; cp4 08/27 23:11 Body Mass Index 33.28 (90.72 kg, 165.1 cm) lg3 08/27 23:11 Pain Scale: Adult lg3 [place] Coma Score: 03:11 Eye Response: spontaneous(4). Motor Response: obeys commands(6). Verbal Response: sp4 oriented(5). Total: 15. ED Course: 08/27 22:42 Patient arrived in ED. im 23:00 Rio Kulkarni MD is Attending Physician. sp4 23:13 Triage completed. lg3 23:13 Arm band placed on right wrist. lg3 23:16 Joan Vieira is Primary Nurse. cp4 08/28 00:12 US Abdomen Limited In Process Unspecified. EDMS 00:47 Bed in low position. Call light in reach. Side rails up X 1. cp4 00:47 No provider procedures requiring assistance completed. Missed attempt(s): 20 gauge in cp4 right antecubital area. 00:55 Inserted saline lock: 22 gauge in right hand, using aseptic technique. Blood collected. br2 Flushed with 10 mL NS. 00:55 Missed attempt(s): 20 gauge in right antecubital area. br2 01:53 Abdomen In Process Unspecified. EDMS 02:53 Parth Arrington MD is Referral Physician. sp4 03:11 Provided Education on: cholelithiasis. cp4 03:11 intact, bleeding controlled, No redness/swelling at site. Pressure dressing applied. cp4 Administered Medications: 01:03 Drug: NS 0.9% IV 1000 ml IV at 1000 ml once; to be given as a bolus over 60 minutes cp4 Route: IV; Rate: 1000 ml; Site: right hand; 03:12 Follow up: Response: No adverse reaction; IV Status: Completed infusion cp4 Medication: 00:47 VIS not applicable for this client. cp4 Outcome: 02:54 Discharge ordered by . sp4 03:11 Discharged to home ambulatory, cp4 03:11 Condition: stable 03:11 Discharge instructions given to patient, Instructed on discharge instructions, follow up and referral plans. medication usage, Demonstrated understanding of instructions, follow-up care, medications, Prescriptions given X 1, 03:13 Patient left the ED. cp4 Signatures: Dispatcher [employer] EDMS Clarita Segal RN RN [email or web address] Rio Kulkarni MD MD sp4 Veronika Cherry Christina cp4 Allison Burgess RN RN br2
[2024-08-28 10:36] VITALS: TEMP 97.6
[2024-08-28 10:39] VITALS: O2SAT 100
[2024-08-28 10:40] VITALS: BP 130/85
== END 2024-08-28 03:13 | disposition home or self-care (01) ==
LOC: ER 22:40
DX: K80.80 Other cholelithiasis without obstruction (principal); K80.51 Calculus of bile duct without cholangitis or cholecystitis with obstruction
CPT/HCPCS: 85025; 81001; 36415; 81025; 83690; 80053; 74176; 76705; J7030